=== PATIENT | female | born 1955 | race African-American/Black ===

== ENCOUNTER 2017-09-03 07:41 | Inpatient (IN) | payer OTHER ==
[~2017-09-03] VITALS: Ht 157.4 cm; Wt 139.5 kg
[2017-09-03] VITALS (11 sets, daily range): BP systolic 118–209; BP diastolic 46–109
--- NOTE | ~2017-09-03 | PR ---
[place], [place] PROGRESS NOTE NAME: [facility]: [id number] UNIT #: [id number] ROOM: 425 DOCTOR: WENDI MITCHELL MD BIRTHDATE: [birth year] DOS: SUBJECTIVE: Mariia Brown who has been admitted to hospital with hypertensive encephalopathy. She is progressively getting better. She is conscious, alert and oriented. No headache, no chest pain, no difficulty in breathing, no dizziness. Her basic metabolic panel today is normal. CBC is fairly normal. OBJECTIVE: VITAL SIGNS: Her blood pressure today is 132/70, pulse 78, respirations 18, temperature 98.1. CHEST: Clear. HEART: Regular. ABDOMEN: Soft. NEUROLOGIC: No neurological deficit observed. The patient is gradually improving. I will encourage her to ambulate a little more and see how she is doing. WENDI MITCHELL MD CM:PNTRANS 1113 [id number] WENDI MITCHELL MD 09/07/17 7220 interface
--- NOTE | ~2017-09-03 | PR ---
[place], [place] PROGRESS NOTE NAME[id number] UNIT #: [id number] ROOM: 425 DOCTOR: ERLIN MEDEIROS,ROBERT Frye BIRTHDATE: [birth year] DOS: 09/06/2017 SUBJECTIVE: The patient was seen and examined. She was transferred out of the ICU. She was lying in bed on room air. She denies shortness of breath, fevers, chills or night sweats. Her blood pressures appeared to be well controlled and I did not see any documented low readings. PHYSICAL EXAMINATION: VITAL SIGNS: Temperature 97.8, pulse 73, respiratory rate 18, systolic blood pressures today have been ranging in the 120s to 140s. GENERAL: She is awake and alert, in no acute distress. HEENT: Shows no JVD. LUNGS: Clear. HEART: Normal S1, S2. ABDOMEN: Soft, nontender. EXTREMITIES: Showed no edema. SKIN: Showed no rash. LABORATORY DATA: Hemoglobin 13.0, white count is 7.8, platelets 248. BUN 19, creatinine 0.8, sodium 141, potassium 4.2, CO2 of 29. ASSESSMENT AND PLAN: Hypertension. The patient recently had hypertensive urgency and subsequently with aggressive therapy had a drop acutely in her blood pressure. She now appears to be with acceptable blood pressure readings. She is to continue her current medication with the decreased dose of lisinopril. There is a question of compliance if she had a high readings with reinstitution on meds versus severe drop. From a renal standpoint, she is acceptable for discharge. No other changes were recommended at this time. Nothing further to add, at this point we will sign off. ROBERT KERN MD CM:PNTRANS 1544 ROBERT KERN MD 09/06/17 2316 interface
--- NOTE | ~2017-09-03 | EKG ---
[place], [place] ELECTROCARDIOGRAM REPORT NAME: RENNY BROWN UNIT #: [id number] ROOM: [facility] DOCTOR: AYLA TA MD BIRTHDATE: [birth year] DOS: 09/03/2017 TIME: 08:34:55. RATE AND RHYTHM: Normal sinus rhythm at 60 beats per minute. WY interval 163 milliseconds, QRS duration 88 milliseconds, corrected QT interval is 385 milliseconds, QRS axis is -32. IMPRESSION: Normal sinus rhythm, probable left ventricular hypertrophy. This is abnormal EKG. AYLA TA MD CM:EKGRPT:ELECTROCARDIOGRAM REPORT [id number] AYLA TA MD
--- NOTE | ~2017-09-03 | PR ---
[place], [place] PROGRESS NOTE [id number] UNIT #: [id number] ROOM: 425 DOCTOR: WENDI MITCHELL MD BIRTHDATE: [birth year] DOS: SUBJECTIVE: The patient has been admitted to the hospital with hypertensive encephalopathy with confused mental status and she is feeling much better now, but having some headache, and she is also having history of vertigo, blurred vision, hyperchloremia, hematuria, bradycardia, morbid obesity, essential hypertension. She is not allergic, and lymphopenia. The patient is lying comfortably in the bed, but still feeling some dizziness. Her CBC today shows essentially normal values. Basic metabolic profile was also normal. OBJECTIVE: VITAL SIGNS: Her blood pressure today is 144/86, pulse 77, respirations 20, temperature 98.2. CHEST: Clear. HEART: Regular. ABDOMEN: Soft. I have readjusted her medications to start giving her Norvasc at nighttime instead of in the morning. The patient thinks she does not feel good with it in the morning. WENDI MITCHELL MD CM:PNTRANS 57 WENDI MITCHELL MD 09/06/172058 interface
[~2017-09-03 07:41] MED LIST: ADIPEX-P37.5 MG PO; ALLEGRA180 MG PO; AMLODIPINE5 MG PO; AMOXICILLIN500 M2 PO; AMOXICILLIN500 MG PO; AMOXIL500 MG PO; ANTIVERT/2525 MG PO; ANUSOL-HC25 MG RC; ASPIRIN81 M1 PO; AUGMENTIN 875875 MG PO; CETIRIZINE10 MG PO; CIPRO500 MG PO; CLARITIN10 MG PO; COREG25 MG PO; DIFLUCAN150 MG PO; DOXYCYCLINE MO100 MG PO; FLEXERIL5 MG PO; FLONASE 0.05% 121 EA NAS; HYDROCHLOROTHIA25 MG PO; HYDROCODONE BIT1 T11 PO; LEVAQUIN500 M2 PO; LISINOPRIL40 MG PO; Lopressor25 MG PO; MOTRIN800 MG PO; NAPROXEN500 M1 PO; NIFEDIPINE30 MG PO; PARAFON FORTE500 MG PO; PHENERGAN W/DM120 ML PO; PREDNICOT10 MG PO; PREDNISONE20 M1 PO; PRINIVIL20 MG PO; PROMETHAZINE25 MG RC; ROBITUSSIN DM 105 ML PO; TOBREX OPHTH S2.5 ML OPH; TRAMADOL HCL50 MG PO; ULTRAM50 MG PO; VIBRAMYCIN100 MG PO; VICODIN 500 MG-1 TAB PO; VITAMIN D32000 IU PO; VITAMIN D50000 I1 PO; ZITHROMAX Z PA250 MG PO
[2017-09-03 08:19] LABS: BASO % 0.5 % (0.0-1.0); EOS # 0.2 10*3/uL (0.0-0.4); EOS % 2.1 % (1.0-4.0); HEMATOCRIT 39.8 % (37.0-47.0); HEMOGLOBIN 12.8 g/dl (12.0-16.0); LYMPH # 1.3 10*3/uL (1.3-4.4); LYMPH % 17.1 % (27.0-41.0); MEAN CELL VOLUME 88.6 fl (81.0-99.0); MEAN CORPUSCULAR HGB 28.5 pg (27.0-31.0); MEAN CORPUSCULAR HGB CONC 32.2 g/dl (33.0-37.0); MEAN PLATELET VOLUME 9.9 fl (9.6-12.3); MONO # 0.5 10*3/uL (0.1-1.0); NEUT # 5.7 10*3/uL (2.3-7.9); PLATELET COUNT AUTOMATED 230 10*3/uL (130-400); RED BLOOD COUNT 4.49 10*6/uL (4.10-5.10); RED CELL DISTRI WIDTH 14.8 % (0-14.5); WHITE BLOOD COUNT 7.7 10*3/uL (4.8-10.8)
[2017-09-03 08:27] LABS: ACT PARTIAL THROMBO TIME 25.7 SECONDS (20.8-31.5); INTERNATIONAL NORM RATIO 0.9 (2.0-3.5)
[2017-09-03 08:29] LABS: BILIRUBIN NEGATIVE (NEGATIVE); BLOOD 1+ (NEGATIVE); CLARITY CLEAR (CLEAR); COLOR YELLOW (YELLOW); GLUCOSE NEGATIVE (NEGATIVE); KETONE NEGATIVE (NEGATIVE); LEUKO ESTERASE NEGATIVE (NEGATIVE); NITRITE NEGATIVE (NEGATIVE); PH 5.5 (5.0-9.0); SPECIFIC GRAVITY 1.015 (1.005-1.030); UROBILINOGEN 0.2 E.U./dl (0.2-1.0)
[2017-09-03 08:40] LABS: ALBUMIN 3.1 gm/dl (3.1-4.5); ALKALINE PHOSPHATASE 81 U/L (45-117); BUN 18 mg/dl (7-24); CHLORIDE 110 mmol/L (98-107); CREATININE 0.72 mg/dL (0.55-1.02); POTASSIUM 4.3 mmol/L (3.5-5.1); SGOT/AST 18 IU/L (3-35); SGPT/ALT 23 U/L (12-78); SODIUM 142 mmol/L (136-145); TOTAL PROTEIN 7.1 gm/dL (6.4-8.2)
[2017-09-03 08:42] LABS: TROPONIN I < 0.015 ng/ml (<0.045)
[2017-09-03 08:45] LABS: BACTERIA 1+
--- NOTE | 2017-09-03 10:03 | NUR ---
RECEIVED REPORT ON PT FROM NURSE IN ER, REPORTS PT'S BP 209/109. ASKED IF THEY WERE GOING TO GIVE THE PT ANYTHING, NURSE STATES DR WAS IN ROOM AT THAT TIME WHEN BP WAS REPORTED AND NO ORDERS AT THIS TIME. STATES THEY JUST RECHECKED BP AND IT IS 160/69, BUT STATES BP CUFF IS NOT PROPER FITTING.
--- NOTE | 2017-09-03 10:10 | NUR ---
A 62, admitted to 5E, under the services of AYLA Persaud MD with a diagnosis of HTN EMERGENCY. Chief complaint is HEADACHE, DIZZINESS. Patient arrived via ambulatory from ER. Monitor applied. Initial assessment completed. Vital signs taken and recorded. AYLA PERSAUD MD notified of admission to the unit. Orders received. See assessment for past medical history, medications and allergies. Patient and/or family oriented to unit. [facility] visitation policy reviewed. Clothing/patient valuable form completed. LARRY SALMON
[2017-09-03] MEDS ORDERED: NORVASC10 MG PO (10:20)
[2017-09-03] MEDS ORDERED: LASIX40 MG PO (10:21)
[2017-09-03] MEDS ORDERED: K-TAB20 MEQ PO ×2 (10:22→10:25)
--- NOTE | 2017-09-03 10:25 | NUR ---
HOME MED REQ UPDATED PER [facility]. MED LIST FAXED AND ON CHART.
--- NOTE | 2017-09-03 10:52 | NUR ---
DR LOWERY UPDATED ON PT'S STATUS, BP REMAINS 178/92. PT DID NOT RECEIVE ANYTHING IN ER. UPDATED THAT PT DID TAKE HER COREG AND NORVASC AT HOME BEFORE COMING IN.
--- NOTE | 2017-09-03 11:53 | NUR ---
BP RECHECKED MANUALLY 142/72. DR LOWERY NOTIFIED.
--- NOTE | 2017-09-03 12:11 | NUR ---
SPOKE WITH DR LOWERY REGARDING PT'S ADMIT TO SERVIC ORDER, STATES THAT PT SHOULD REMAIN ON THE MONITOR AND HE WILL CHANGE THE ORDER FROM UNMONITORED TO MONITORED.
--- NOTE | 2017-09-03 14:30 | NUR ---
DR LOWERY NOTIFIED OF PT'S BP OF 136/46 AFTER RECEIVING IV HYDRALAZINE, LISNIOPRIL IS PROFILED TO BE GIVEN NOW. STATES TO HOLD LISINOPRIL FOR NOW AND TO CALL WITH BP AT 1600. STATES OK TO START ANTIVERT NOW AND KEEP 2200 DOSE WELL.
--- NOTE | 2017-09-03 15:23 | NUR ---
PT DOWN FOR CAROTID ULTRASOUND AT THIS TIME.
--- NOTE | 2017-09-03 16:41 | NUR ---
SPOKE WITH DR LOWERY REGARDING PT'S BP PER MD REQUEST, PT'S BP 158/66, STATES TO GIVEN SCHEDULED 1700 DOSE OF COREG AND GIVE EARLIER SCHEDULED LISINOPRIL AT THIS TIME, AND TO RECHECK BP IN AN HOUR AND CALL WITH RESULTS. PT MEDICATED WITH TYLENOL AT THIS TIME FOR COMPLAINTS OF HEADACHE.
--- NOTE | 2017-09-03 19:50 | NUR ---
LAB RESULTS AND ORDERS REVIEWED
[2017-09-04] VITALS (8 sets, daily range): BP systolic 104–160; BP diastolic 62–89
[2017-09-04 07:16] LABS: BASO % 0.6 % (0.0-1.0); EOS # 0.1 10*3/uL (0.0-0.4); EOS % 1.8 % (1.0-4.0); HEMATOCRIT 38.7 % (37.0-47.0); HEMOGLOBIN 12.7 g/dl (12.0-16.0); LYMPH # 1.3 10*3/uL (1.3-4.4); LYMPH % 18.6 % (27.0-41.0); MEAN CELL VOLUME 88.6 fl (81.0-99.0); MEAN CORPUSCULAR HGB 29.1 pg (27.0-31.0); MEAN CORPUSCULAR HGB CONC 32.8 g/dl (33.0-37.0); MEAN PLATELET VOLUME 9.8 fl (9.6-12.3); MONO # 0.5 10*3/uL (0.1-1.0); MONO % 6.8 % (3.0-9.0); NEUT # 4.9 10*3/uL (2.3-7.9); NEUT % 71.9 % (47.0-73.0); PLATELET COUNT AUTOMATED 234 10*3/uL (130-400); RED BLOOD COUNT 4.37 10*6/uL (4.10-5.10); RED CELL DISTRI WIDTH 14.8 % (0-14.5); WHITE BLOOD COUNT 6.8 10*3/uL (4.8-10.8)
--- NOTE | 2017-09-04 07:30 | NUR ---
PT SLEEPING EASILY AWAKEN A&OX3 VS STABLE BUT BLOOD PRESSURE [place]. EQUAL ASSISTANT PRINCIPAL. HEART SOUNDS NORMAL. LUNG SOUNDS CLEAR BUT DIMISHED. SKIN TURGOR GOOD WARM DRY TO TOUCH. SKIN INTACT. NO EDMA PRESENT. ABD SOFT NON-DISTENED NON TENDER. BSX4. I ASST PT, SHE ABMULATED WELL FROM THE BED TO THE BATHROOM THEN TO THE CHAIR. PT DENIES ANY DIZZINESS, CHEST PAIN. NO C/O OF PAIN AT THIS TIME CONTUINE TO ASSESS LARRY CALL SPN
[2017-09-04 07:43] LABS: ACT PARTIAL THROMBO TIME 25.6 SECONDS (20.8-31.5)
[2017-09-04 07:47] LABS: BUN 14 mg/dl (7-24); CHLORIDE 108 mmol/L (98-107); CHOLESTEROL 123 mg/dL (<200); CREATININE 0.71 mg/dL (0.55-1.02); FREE T4 1.21 ng/dl (0.76-1.46); HDL CHOLESTEROL 39 mg/dl (40-60); LDL CHOLESTEROL 63 mg/dL (9-159); POTASSIUM 4.1 mmol/L (3.5-5.1); SODIUM 141 mmol/L (136-145); TRIGLYCERIDES 104 mg/dl (<150); VLDL CHOLESTEROL 21 mg/dL (6-40)
[2017-09-04 07:54] LABS: THYROID STIM HORMONE (HS) 0.904 uIU/ml (0.358-4.75)
--- NOTE | 2017-09-04 08:00 | NUR ---
Floorhand in to talk to patient. Patient states lives at HOMEHER with HER SON. There are 16 steps in the home. Physician: DR TA Pharmacy: [facility] Home health services: NONE Patient's level of ADLs: INDEPENDENT Patient has working utilities: YES DME: NONE Follow-up physician's appointment after d/c: PREFERS TO MAKE HER OWN APPT Does patient want to access PORTAL?: Discharge plan HOME. CYRIL YANCEY
--- NOTE | 2017-09-04 08:00 | NUR ---
PT BEING CARED FOR BY [facility] STUDENT NURSE, WILL CONTINUE TO MONITOR.
--- NOTE | 2017-09-04 08:30 | NUR ---
PT A&OX3 VERY PLEASANT DUE TO HER HIGH BP PER VERONICA TO GIVE APRESOLINE 5MG IV GAVE 0,25 ML AND NS FLUSH. RAFA IV PUSHED MEDS. I WILL RECHECK BLOOD PRESSUSE LARRY CALL SPN
[2017-09-04 09:18] LABS: VITAMIN D, 25-HYDROXY 34.4 ng/mL (30-100)
--- NOTE | 2017-09-04 09:30 | NUR ---
PT A&O X3 LAYING IN BED, VERY PLEASANT. RECHECKD BLOOD PRESSUER IT WAS 123/53 HAD TO USE AUTOMATIC PRESSURE CUFF DUE TO MANUAL PRESSURE CUFFS NOT WORKING. PT HAD NO C/O AT THIS TIME, WILL CONTUINE TO ASSESS. LARRY CALL
--- NOTE | 2017-09-04 10:00 | NUR ---
PT A&0 X3 VERY PLEASANT WAS GIVING HER MEDS AND SHE REFUSED TO TAKE THE LOVENOX SHOT. SHE ASKED " WHAT KIND OF SHOT IS THAT, I DONT TAKE ANY MEDS IN SHOTS" SHE WAS TOLD IT IS A BLOOD THINNER, THAT EVERYONE IN THE HOSPITAL GETS IT. PT STATED "IM NOT TAKING THAT, I DON'T NEED IT, I BLEED AND BRUISE TO EASILY IT IS" PT ALSO IS REFUSING TO WEAR [place] HOSE STATES' I DON'T NEED THEM I GET UP AND MOVE AROUND ENOUGH" NO C/O PAIN AT THIS TIME CONTINUE TO ASSESS LARRY CALL SPN
--- NOTE | 2017-09-04 10:17 | NUR ---
SPOKE WITH STAFF AT [facility] REAGRDING CONSULT. STAFF REQUESTS & WAS FAXED ORDER FOR [facility], FACE SHEET & H&P.
--- NOTE | 2017-09-04 13:07 | NUR ---
DR TA IN TO SEE PT.
--- NOTE | 2017-09-04 16:00 | NUR ---
LYING COMFORTABLY IN BED, PT DENIES C/O CHEST PAIN OR S.O.B. ADMITS TO "FEELING LIKE THE ROOM MOVES IF I MOVE OR TRY TO STAND UP" DENIES BLURRED VISION OR NAUSEA. CALL LIGHT SYSTEM REINFORCED FOR ASSISTANCE.SEE SHIFT ASSESSMENT.
--- NOTE | 2017-09-04 18:32 | NUR ---
CALLED TO PTS ROOM BY FAMILY, PT C/O "FEELING DIZZY & FEELS LIKE IM GONNA PASS OUT" PT INSISTED ON GOING TO [facility], ASSISTED WITHOUT INCIDENT. PT DIAPHORETIC, STATES I THING IM GONNA PASS OUT, RAPID RESPONSE CALLED. BLOOD SUGAR 92, DR FARRIS AT BEDSIDE. ORDERS BEING CARRIED OUT.
[2017-09-04 18:48] LABS: BASO # 0.1 10*3/uL (0.0-0.1); BASO % 0.6 % (0.0-1.0); EOS # 0.1 10*3/uL (0.0-0.4); EOS % 1.1 % (1.0-4.0); HEMATOCRIT 41.6 % (37.0-47.0); HEMOGLOBIN 13.4 g/dl (12.0-16.0); LYMPH # 2.1 10*3/uL (1.3-4.4); LYMPH % 19.9 % (27.0-41.0); MEAN CELL VOLUME 88.1 fl (81.0-99.0); MEAN CORPUSCULAR HGB 28.4 pg (27.0-31.0); MEAN CORPUSCULAR HGB CONC 32.2 g/dl (33.0-37.0); MONO # 0.6 10*3/uL (0.1-1.0); MONO % 6.1 % (3.0-9.0); NEUT # 7.5 10*3/uL (2.3-7.9); NEUT % 71.9 % (47.0-73.0); PLATELET COUNT AUTOMATED 276 10*3/uL (130-400); RED BLOOD COUNT 4.72 10*6/uL (4.10-5.10); RED CELL DISTRI WIDTH 14.9 % (0-14.5); WHITE BLOOD COUNT 10.5 10*3/uL (4.8-10.8)
[2017-09-04 19:04] LABS: BUN 23 mg/dl (7-24); CHLORIDE 106 mmol/L (98-107); CREATININE 1.14 mg/dL (0.55-1.02); POTASSIUM 4.3 mmol/L (3.5-5.1); SODIUM 140 mmol/L (136-145)
[2017-09-04 19:06] LABS: TROPONIN I < 0.015 ng/ml (<0.045)
--- NOTE | 2017-09-04 19:20 | NUR ---
TRANSFERRED TO ICU WITHOUT INCIDENT, REPORT TO MAX GUEVARA RN. FAMILY AT BEDSIDE.
--- NOTE | 2017-09-04 20:11 | NUR ---
DR GERRY HILL FOR CONSULT. PT IS RESTING IN BED WITH FAMILY AT SIDE. VITALS STABLE. BP 123/58.
--- NOTE | 2017-09-04 21:44 | NUR ---
DR. ESQUEDA ANSWERED BEEP. NOTIFIED OF CONSULT. WILL SEE PT IN THE AM.NO NEW ORDERS RECEIVED.
--- NOTE | 2017-09-04 23:15 | NUR ---
PATIENT STATES EARLIER TYLENOL WAS INEFFECTIVE FOR HER HEADACHE.
[2017-09-05] VITALS: BP 124/54
[2017-09-05 04:00] VITALS: BP 126/44
[2017-09-05 05:55] LABS: ALKALINE PHOSPHATASE 68 U/L (45-117); BUN 19 mg/dl (7-24); CHLORIDE 108 mmol/L (98-107); CREATININE 0.79 mg/dL (0.55-1.02); PHOSPHOROUS 3.1 mg/dL (2.5-4.9); POTASSIUM 4.1 mmol/L (3.5-5.1); SGOT/AST 16 IU/L (3-35); SGPT/ALT 20 U/L (12-78); SODIUM 141 mmol/L (136-145)
[2017-09-05 06:09] LABS: BASO # 0.1 10*3/uL (0.0-0.1); BASO % 0.6 % (0.0-1.0); EOS # 0.1 10*3/uL (0.0-0.4); EOS % 1.2 % (1.0-4.0); HEMATOCRIT 39.9 % (37.0-47.0); HEMOGLOBIN 13.1 g/dl (12.0-16.0); LYMPH # 1.7 10*3/uL (1.3-4.4); LYMPH % 20.7 % (27.0-41.0); MEAN CELL VOLUME 88.9 fl (81.0-99.0); MEAN CORPUSCULAR HGB 29.2 pg (27.0-31.0); MEAN CORPUSCULAR HGB CONC 32.8 g/dl (33.0-37.0); MEAN PLATELET VOLUME 10.1 fl (9.6-12.3); MONO # 0.6 10*3/uL (0.1-1.0); MONO % 7.7 % (3.0-9.0); NEUT # 5.6 10*3/uL (2.3-7.9); NEUT % 69.4 % (47.0-73.0); PLATELET COUNT AUTOMATED 245 10*3/uL (130-400); RED BLOOD COUNT 4.49 10*6/uL (4.10-5.10); RED CELL DISTRI WIDTH 14.9 % (0-14.5); WHITE BLOOD COUNT 8.1 10*3/uL (4.8-10.8)
[2017-09-05 08:00] VITALS: BP 133/69
--- NOTE | 2017-09-05 10:43 | NUR ---
PT TAKEN TO RADIOLOGY DEPT FOR RENAL ULTRASOUND.
[2017-09-05 12:00] VITALS: BP 149/78
--- NOTE | 2017-09-05 13:57 | NUR ---
DR ESQUEDA IN TO SEE PT.
[2017-09-05 16:00] VITALS: BP 137/67
--- NOTE | 2017-09-05 18:11 | NUR ---
PT TRANSFERED TO ROOM 425 VIA BED AT THIS TIME.
[2017-09-05 20:00] VITALS: BP 130/64
--- NOTE | 2017-09-05 22:00 | NUR ---
PATIENT RESTING QUIETLY IN BED. RESPIRATIONS EASY/REG. SHE C/O FEELING DIZZY AND HAVING A HEADACHE WHICH SHE HAD BEEN MEDICATED FOR. SHE STATES SHE FEELS DIZZY AND HAS BEEN FEELING THIS WAY SINCE BEFORE SHE CAME IN. SHE WAS MEDICATED WITH SCHEDULED ANTIVERT WELL. WILL MONITOR.
--- NOTE | 2017-09-05 22:08 | NUR ---
MEDICATED WITH PRN TYLENOL ORDERD FOR C/O HEADACHE
--- NOTE | 2017-09-05 23:08 | NUR ---
PATIENT STATES EARLIER TYLENOL WAS INEFFECTIVE FOR HER HEADACHE.
--- NOTE | 2017-09-05 23:15 | NUR ---
DR CASTILLO AND DR CAN MADE AWARE OF PATIENTS DIZZINESS AND CONSTANT HEADACHE. NO NEW ORDERS AT THIS TIME.
[2017-09-06] VITALS: BP 137/59
--- NOTE | 2017-09-06 00:32 | NUR ---
PATIENT WAS COMPLAINING OF HER IV BOTHERING HER AND CAUSING PAIN. I REMOVED THE OLD ONE AND STARTED A NEW 22 IN HER RIGHT HAND. AREA WAS PREPPED WITH CHLORAPREP, HAS GOOD BLOOD RETURN AND FLUSHES EASILY WITHOUT CAUSING PAIN TO PATIENT. IV SECURED AND TRANSPARENT DRESSING APPLIED. PATIENT TOLERATED WELL.
--- NOTE | 2017-09-06 04:16 | NUR ---
PATIENT RESTING WITH HOB ELEVATED. C/O A HEADACHE WHICH SHE RATES A 7. MEDICATED WITH PRN TYLENOL ORDERED.
[2017-09-06 06:30] VITALS: BP 128/57
[2017-09-06 07:13] LABS: BASO # 0.1 10*3/uL (0.0-0.1); BASO % 0.6 % (0.0-1.0); EOS # 0.1 10*3/uL (0.0-0.4); EOS % 1.7 % (1.0-4.0); HEMATOCRIT 40.9 % (37.0-47.0); LYMPH # 1.6 10*3/uL (1.3-4.4); LYMPH % 19.8 % (27.0-41.0); MEAN CELL VOLUME 89.1 fl (81.0-99.0); MEAN CORPUSCULAR HGB 28.3 pg (27.0-31.0); MEAN CORPUSCULAR HGB CONC 31.8 g/dl (33.0-37.0); MEAN PLATELET VOLUME 9.9 fl (9.6-12.3); MONO # 0.5 10*3/uL (0.1-1.0); MONO % 6.8 % (3.0-9.0); NEUT # 5.5 10*3/uL (2.3-7.9); NEUT % 70.6 % (47.0-73.0); PLATELET COUNT AUTOMATED 248 10*3/uL (130-400); RED BLOOD COUNT 4.59 10*6/uL (4.10-5.10); RED CELL DISTRI WIDTH 14.9 % (0-14.5); WHITE BLOOD COUNT 7.8 10*3/uL (4.8-10.8)
[2017-09-06 07:39] LABS: BUN 19 mg/dl (7-24); CHLORIDE 106 mmol/L (98-107); CREATININE 0.81 mg/dL (0.55-1.02); POTASSIUM 4.2 mmol/L (3.5-5.1); SODIUM 141 mmol/L (136-145)
[2017-09-06 08:00] VITALS: BP 144/86
--- NOTE | 2017-09-06 11:17 | NUR ---
PT COMPLAINS OF DIZZINESS, VITALS TAKEN, BLOOD PRESSURE WNL. COMPLAINS OF HEADACHE, TYLENOL GIVEN. SEE MAR WILL MONITOR
[2017-09-06 12:00] VITALS: BP 149/77
[2017-09-06 16:00] VITALS: BP 130/76
--- NOTE | 2017-09-06 19:45 | NUR ---
PT AWAKE IN BED WATCHING TV. C/O DIZZINESS AT TIMES BUT LESS FREQUENT. NO OTHER C/O VOICED. ENCOURAGED TO CALL FOR ASSISTANCE WHEN RISING/AMBULATING. PT ACKNOWLEDGES. CALL LIGHT IN REACH.
[2017-09-06 20:00] VITALS: BP 122/62
[2017-09-07] VITALS: BP 105/50
--- NOTE | 2017-09-07 03:15 | NUR ---
24 HR chart check completed.
[2017-09-07 08:00] VITALS: BP 132/76
[2017-09-07 12:00] VITALS: BP 135/58
[2017-09-07 16:00] VITALS: BP 132/61
--- NOTE | 2017-09-07 18:26 | NUR ---
TYLENOL 650MG PO GIVEN PER PATIENT REQUEST FOR A HEADACHE RATING A 8/10.
[2017-09-07 20:00] VITALS: BP 116/47
[2017-09-08] VITALS: BP 123/66
[2017-09-08 08:00] VITALS: BP 113/77
[2017-09-08 12:00] VITALS: BP 126/60
[2017-09-08 16:00] VITALS: BP 125/63
[2017-09-08] MEDS ORDERED: ALDACTONE25 MG PO (16:49)
--- NOTE | 2017-09-08 19:05 | NUR ---
PT DISCHARGE OFF OF FLOOR, AMBULATORY, REFUSED WHEELCHAIR. PT STABLE.
== END 2017-09-08 19:05 | disposition home or self-care (01) | DRG 305 ==
LOC: ED 07:41 → 5E 09:27 → EDHOLD 09:27 → 5E 09:41 → ICCU 09-04 18:47 → 4E 09-05 17:40
PROVIDERS: Emergency Medicine; Internal Medicine; ADMIT Internal Medicine
DX: I16.1 Hypertensive emergency (principal); E66.01 Morbid (severe) obesity due to excess calories; E87.8 Other disorders of electrolyte and fluid balance, not elsewhere classified; K76.0 Fatty (change of) liver, not elsewhere classified; N13.30 Unspecified hydronephrosis; R00.1 Bradycardia, unspecified; R31.9 Hematuria, unspecified; M17.9 Osteoarthritis of knee, unspecified; I10 Essential (primary) hypertension; R42 Dizziness and giddiness; J30.2 Other seasonal allergic rhinitis; B34.9 Viral infection, unspecified; H53.8 Other visual disturbances; Z78.9 Other specified health status; Z88.1 Allergy status to other antibiotic agents; Z88.8 Allergy status to other drugs, medicaments and biological substances; Z79.82 Long term (current) use of aspirin; Z79.899 Other long term (current) drug therapy; Z68.43 Body mass index [BMI] 50.0-59.9, adult; Z87.440 Personal history of urinary (tract) infections; Z90.49 Acquired absence of other specified parts of digestive tract; Z87.01 Personal history of pneumonia (recurrent); Z84.89 Family history of other specified conditions; Z83.3 Family history of diabetes mellitus; Z82.49 Family history of ischemic heart disease and other diseases of the circulatory system; Z82.3 Family history of stroke

== ENCOUNTER 2018-07-26 16:55 | Emergency (ER) | payer MEDICARE ==
[~2018-07-26] VITALS: Ht 157.4 cm; Wt 119.3 kg
[~2018-07-26 16:55] MED LIST changes: +ALDACTONE25 MG PO; +K-TAB20 MEQ PO; +LASIX40 MG PO; +NORVASC10 MG PO; +ZESTORETIC 10-1 EACH PO
[2018-07-26 16:56] VITALS: BP 174/91
== END 2018-07-26 19:18 | disposition home or self-care (01) ==
LOC: ED 16:55
DX: S93.601A Unspecified sprain of right foot, initial encounter (principal); Z88.1 Allergy status to other antibiotic agents; Z88.6 Allergy status to analgesic agent; Z79.899 Other long term (current) drug therapy; Z90.49 Acquired absence of other specified parts of digestive tract; X58.XXXA Exposure to other specified factors, initial encounter; Y93.01 Activity, walking, marching and hiking; Y92.000 Kitchen of unspecified non-institutional (private) residence as the place of occurrence of the external cause; Y99.8 Other external cause status

== ENCOUNTER 2018-08-19 11:54 | Emergency (ER) | payer MEDICARE ==
[~2018-08-19] VITALS: Ht 157.4 cm; Wt 86.2 kg
[2018-08-19 11:54] VITALS: BP 158/84
== END 2018-08-19 14:26 | disposition home or self-care (01) ==
LOC: ED 11:54
DX: S93.401A Sprain of unspecified ligament of right ankle, initial encounter (principal); I11.0 Hypertensive heart disease with heart failure; I50.32 Chronic diastolic (congestive) heart failure; E66.01 Morbid (severe) obesity due to excess calories; Z90.49 Acquired absence of other specified parts of digestive tract; Z68.43 Body mass index [BMI] 50.0-59.9, adult; Z88.1 Allergy status to other antibiotic agents; Z88.8 Allergy status to other drugs, medicaments and biological substances; Z79.899 Other long term (current) drug therapy

== ENCOUNTER → 2018-10-14 | Outpatient (CLI) | payer MEDICARE ==
[~2018-10-14] MED LIST changes: +NAPROXEN500 MG PO; +PROTONIX40 MG PO; +VITAMIN D22000 UNIT PO; +ZESTORETIC 20-1 EACH PO
== END | disposition home or self-care (01) ==
LOC: MRI 13:15
DX: M65.871 Other synovitis and tenosynovitis, right ankle and foot (principal); M19.071 Primary osteoarthritis, right ankle and foot; M67.471 Ganglion, right ankle and foot

== ENCOUNTER 2018-11-13 23:22 | Inpatient (IN) | payer MEDICARE ==
[~2018-11-13] VITALS: Ht 157.4 cm; Wt 129.3 kg
--- NOTE | ~2018-11-13 | CON ---
[place], [place] REPORT OF CONSULTATION NAME[id number] UNIT #: [id number] ROOM: 528 DOCTOR: ROBERTO GREER MD BIRTHDATE: [birth year] DOS: 11/14/2018 GASTROENDOSCOPIC REPORT HISTORY OF PRESENT ILLNESS: This is a 63-year-old lady, who has presented with chief complaint of dehydration with nausea, abdominal pain, epigastric distress, and vomiting symptomatology. The patient has lactic acid of 0.9. CBC differential white blood cell was 11, H and H of 14 and 44, differential was within normal limits. INR was 0.9. Comprehensive metabolic panel, GFR is greater than 60. Electrolytes balanced. Lipase of 500. C-reactive protein is 2.4. Liver function tests otherwise unremarkable. Chest x-ray, no acute findings. CT scan of the abdomen and pelvis was organized. No acute inflammatory process, severe diffuse hepatic steatosis with hepatomegaly, no definitive evidence of pneumoperitoneum, mediastinum, tubular appearing small locules of gas along the periphery of the distal esophagus, and EG junction similar to a CT scan of the 2018, concerned about the etiology could present containing ulceration with gas in this area. Hemoglobin and hematocrit did not drop. Hemoglobin A1c is 5.8. Vitamin B12 is 48. Comprehensive metabolic panel, electrolytes balanced; phosphorus, magnesium, and liver function test normal. INR is 0.9. PAST MEDICAL HISTORY: Aortic valve deformity, history of degenerative joint disease, diverticulosis, congestive heart failure, obesity, systemic hypertension, and extreme steatosis of the liver. PAST SURGICAL HISTORY: Appendectomy, mandibular surgery, and eye surgery, details unknown. MEDICATIONS: Has been reviewed. ALLERGIES: THE PATIENT IS ALLERGIC TO TETRACYCLINE AND IBUPROFEN. SOCIAL HISTORY: Nonsmoker, nonalcohol consumer. FAMILY HISTORY: Noncontributory. REVIEW OF SYSTEMS: HEENT: Denies double vision, blurred vision. RESPIRATORY: Denies acute shortness of breath. CARDIOVASCULAR: Denies acute chest pain. DIGESTIVE SYSTEM: Nausea, epigastric distress, abdominal pain, and she mentions dehydration. PHYSICAL EXAMINATION: GENERAL: Comfortable. Nontoxic patient. Obese. VITAL SIGNS: Stable. HEENT: Head is normocephalic, nontraumatic. Eyes: Pupils are round and reactive. Mouth and buccal mucosa benign. NECK: Supple. No thyromegaly. No cervical lymphadenopathy. CHEST: Symmetric anatomy, equal expansion. No wheeze. No rhonchi. [place], [place] REPORT OF CONSULTATION NAME: RENNY BROWN UNIT #: [id number] ROOM: 528 DOCTOR: ROBERTO GREER MD BIRTHDATE: [birth year] HEART: Normal sinus rhythm. No gallop. No murmur. ABDOMEN: Soft. No hepato-organomegaly. Bowel sounds present. Obesity. Intra-abdominal organs cannot be in detail auscultated nor palpated. EXTREMITIES: No cyanosis. No pedal edema. NEUROLOGIC: She is alert and oriented to time, place, and person. IMPRESSION: Nausea, epigastric distress, fatty metamorphosis of the liver, and diastolic congestive heart failure history. Other adjunctive diagnoses as outlined in paragraph of past medical and surgical history. PLAN AND DISCUSSION: I am going to proceed with endoscopy of upper tract. I am concerned about portal hypertension, esophageal varicosity presence also. Workup in progress. ROBERTO GREER MD CM:CONSTR:REPORT OF CONSULTATION 1435 11/25/18 1105 interface
--- NOTE | ~2018-11-13 | EKG ---
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
--- NOTE | ~2018-11-13 | O ---
[place], [place] OPERATIVE NOTE [id number] UNIT #: [id number] ROOM: 528 DOCTOR: ROBERTO GREER MD BIRTHDATE: [birth year] DOS: 11/14/2018 GASTROENDOSCOPIC REPORT HISTORY OF PRESENT ILLNESS: The patient is a 63-year-old patient who has presented with chief complaint of epigastric abdominal pain, undergone investigation. Nausea, epigastric distress. PROCEDURE: Today's procedure part of investigation is panendoscopy plus biopsy. PREMEDICATION: Propofol. SCOPE: Olympus forward-viewing gastroscope Q10 video. REPORT: After putting the patient in left lateral position and application of lubricant to the scope, the scope was introduced. Thereafter, under direct visualization, advanced through the length of esophagus without difficulty. Gastric pouch was entered. Bile reflux gastritis was photographed suctioned out and antral biopsy obtained. Duodenal bulb, second and third part within normal limit. The patient extubated, tolerated the procedure well. IMPRESSION: Bile reflux gastritis, status post biopsy. PLAN AND DISCUSSION: The patient needs to be on Protonix 40 mg 1 day. As far as, other adjunctive diagnoses severe steatosis of the liver is concerned. I did not see any evidence of esophageal varicosity, no evidence of portal hypertension as a result and antireflux has to be measured, dietary management to reduce the caloric intake has to be in consideration, elevation of the head of the bed must be considered an 8 inch all time and clinical reassessment. ROBERTO GREER MD CM:OPRECORD:OPERATIVE NOTE 1531 1545 ROBERTO GREER MD 11/14/18 1545 interface
[~2018-11-13 23:22] MED LIST changes: -NAPROXEN500 MG PO; -PROTONIX40 MG PO; -VITAMIN D22000 UNIT PO; -ZESTORETIC 20-1 EACH PO
[2018-11-13 23:23] VITALS: BP 171/92
[2018-11-13 23:57] LABS: BASO % 0.3 % (0.0-1.0); EOS # 0.1 10*3/uL (0.0-0.4); HEMATOCRIT 44.2 % (37.0-47.0); HEMOGLOBIN 14.3 g/dl (12.0-16.0); LYMPH # 0.6 10*3/uL (1.3-4.4); LYMPH % 5.4 % (27.0-41.0); MEAN CELL VOLUME 89.7 fl (81.0-99.0); MEAN CORPUSCULAR HGB CONC 32.4 g/dl (33.0-37.0); MEAN PLATELET VOLUME 9.5 fl (9.6-12.3); MONO # 0.5 10*3/uL (0.1-1.0); MONO % 4.7 % (3.0-9.0); NEUT # 10.2 10*3/uL (2.3-7.9); NEUT % 88.1 % (47.0-73.0); PLATELET COUNT AUTOMATED 256 10*3/uL (130-400); RED BLOOD COUNT 4.93 10*6/uL (4.10-5.10); WHITE BLOOD COUNT 11.6 10*3/uL (4.8-10.8)
[2018-11-14] VITALS (9 sets, daily range): BP systolic 122–153; BP diastolic 50–72
[2018-11-14 00:11] LABS: ACT PARTIAL THROMBO TIME 23.9 SECONDS (20.8-31.5); INTERNATIONAL NORM RATIO 0.9 (2.0-3.5)
[2018-11-14 00:14] LABS: ALBUMIN 3.2 gm/dl (3.1-4.5); ALKALINE PHOSPHATASE 81 U/L (45-117); BUN 15 mg/dl (7-24); CHLORIDE 109 mmol/L (98-107); CREATININE 0.82 mg/dL (0.55-1.02); LIPASE 500 U/L (73-393); POTASSIUM 4.3 mmol/L (3.5-5.1); SGOT/AST 27 IU/L (3-35); SGPT/ALT 36 U/L (12-78); SODIUM 140 mmol/L (136-145); TOTAL PROTEIN 7.9 gm/dL (6.4-8.2)
[2018-11-14 00:15] LABS: TROPONIN I < 0.015 ng/ml (<0.045)
--- NOTE | 2018-11-14 05:00 | NUR ---
A 63, admitted to , under the services of AYLA Persaud MD with a diagnosis of GASTROENTERITIS. Chief complaint is EPIGASTRIC PAIN. . Patient arrived via bed from ER. Monitor applied. Initial assessment completed. Vital signs taken and recorded. AYLA PERSAUD MD notified of admission to the unit. Orders received. See assessment for past medical history, medications and allergies. Patient and/or family oriented to unit. [facility] visitation policy reviewed. Clothing/patient valuable form completed. BEBO MERRILL
[2018-11-14] MEDS ORDERED: NAPROXEN500 MG PO (05:27)
--- NOTE | 2018-11-14 05:29 | NUR ---
PATIENTS MED REC UPDATED FROM CLAIM HX. PATIENT STATES NO NEW MEDICATION.
[2018-11-14 06:56] LABS: BASO % 0.1 % (0.0-1.0); EOS # 0.1 10*3/uL (0.0-0.4); EOS % 1.6 % (1.0-4.0); HEMATOCRIT 41.8 % (37.0-47.0); HEMOGLOBIN 12.8 g/dl (12.0-16.0); LYMPH # 0.6 10*3/uL (1.3-4.4); LYMPH % 8.2 % (27.0-41.0); MEAN CELL VOLUME 92.5 fl (81.0-99.0); MEAN CORPUSCULAR HGB 28.3 pg (27.0-31.0); MEAN CORPUSCULAR HGB CONC 30.6 g/dl (33.0-37.0); MEAN PLATELET VOLUME 9.8 fl (9.6-12.3); MONO # 0.3 10*3/uL (0.1-1.0); MONO % 4.4 % (3.0-9.0); NEUT % 85.4 % (47.0-73.0); PLATELET COUNT AUTOMATED 217 10*3/uL (130-400); RED BLOOD COUNT 4.52 10*6/uL (4.10-5.10); RED CELL DISTRI WIDTH 14.9 % (0-14.5)
[2018-11-14 07:25] LABS: ALKALINE PHOSPHATASE 73 U/L (45-117); BUN 12 mg/dl (7-24); CHLORIDE 112 mmol/L (98-107); CHOLESTEROL 106 mg/dL (<200); CREATININE 0.73 mg/dL (0.55-1.02); HDL CHOLESTEROL 37 mg/dl (40-60); LDL CHOLESTEROL 54 mg/dL (9-159); PHOSPHOROUS 2.6 mg/dL (2.5-4.9); POTASSIUM 4.1 mmol/L (3.5-5.1); SGOT/AST 17 IU/L (3-35); SGPT/ALT 29 U/L (12-78); SODIUM 144 mmol/L (136-145); TOTAL PROTEIN 6.5 gm/dL (6.4-8.2); TRIGLYCERIDES 76 mg/dl (<150); VLDL CHOLESTEROL 15 mg/dL (6-40)
[2018-11-14 07:27] LABS: FREE T4 1.08 ng/dl (0.76-1.46)
[2018-11-14 07:28] LABS: ACT PARTIAL THROMBO TIME 25.9 SECONDS (20.8-31.5); INTERNATIONAL NORM RATIO 0.9 (2.0-3.5)
[2018-11-14 07:31] LABS: VITAMIN D, 25-HYDROXY 17.8 ng/mL (30-100)
--- NOTE | 2018-11-14 10:08 | NUR ---
TORADOL GIVEN FOR 10 OUT OF 10 PAIN IN HEAD. WILL CONTINUE TO MONITOR AND REASSESS.
--- NOTE | 2018-11-14 10:45 | NUR ---
TORADOL EFFECTIVE FOR 10 OUT OF 10 PAIN. PT RESTING COMFORTABLY.
[2018-11-14 22:10] LABS: BILIRUBIN NEGATIVE (NEGATIVE); BLOOD NEGATIVE (NEGATIVE); CLARITY SL CLOUDY (CLEAR); COLOR YELLOW (YELLOW); GLUCOSE NEGATIVE (NEGATIVE); KETONE NEGATIVE (NEGATIVE); LEUKO ESTERASE TRACE (NEGATIVE); NITRITE NEGATIVE (NEGATIVE); PH 5.5 (5.0-9.0); SPECIFIC GRAVITY 1.025 (1.005-1.030); UROBILINOGEN 0.2 E.U./dl (0.2-1.0)
[2018-11-14 22:42] LABS: BACTERIA 3+
[2018-11-15] VITALS: BP 141/58
[2018-11-15 08:00] VITALS: BP 138/60
--- NOTE | 2018-11-15 08:24 | NUR ---
PT SITTING UP IN BED. NO DISTRESS NOTED. WILL MONITOR
[2018-11-15 12:00] VITALS: BP 145/71
[2018-11-15 16:00] VITALS: BP 154/69
[2018-11-15 20:00] VITALS: BP 181/76
[2018-11-15 20:24] VITALS: BP 168/72
[2018-11-15] MEDS ORDERED: ZESTORETIC 20-1 EACH PO (20:27)
--- NOTE | 2018-11-15 20:30 | NUR ---
NOTIFIED OF BP 168/72 MANUALLY. INSTRUCTED TO ORDER HOME MEDICATION LISINOPRIL 20/HCTZ 12.5.
--- NOTE | 2018-11-15 20:55 | NUR ---
PO LISINOPRIL AND PO HCTZ ADMINISTERED PER 'S ORDER. PATIENT DENIES HEADACHE, CHEST PAIN, DIZZINESS, SOB, OR ANY OTHER GENERALZIED DISCOMFORT AT THIS TIME. WILL CONTINUE TO MONITOR. CALL LIGHT LEFT IN REACH.
[2018-11-16] VITALS: BP 141/63
[2018-11-16 08:00] VITALS: BP 158/92
--- NOTE | 2018-11-16 09:00 | NUR ---
Vinyl Installer in to talk to patient. Patient states lives at home with her son. There are 4 steps in the home. Physician: Dr. Jag Lara Pharmacy: [facility] Home health services: none Patient's level of ADLs: MINIMAL ASSIST Patient has working utilities: yes DME: cane Follow-up physician's appointment after d/c: she prefers to make her own follow up appt after discharge Does patient want to access PORTAL?: no Discharge plan discussed with patient. She lives at home with her son. She is independent in her ADLs and ambulates with a cane. Discussed home health care services and she denies any home needs at this time. When medically stable she will be discharged to home. FLAQUITA JETER
[2018-11-16 12:00] VITALS: BP 154/70
[2018-11-16] MEDS ORDERED: PROTONIX40 MG PO (13:24)
[2018-11-16] MEDS ORDERED: VITAMIN D22000 UNIT PO (13:28)
--- NOTE | 2018-11-16 14:56 | NUR ---
Discharge instructions reviewed with patient. Patient receptive and verbalizes understanding. Follow-up care arranged. Written instructions given to patient. SHE IS WAITING FOR RIDE FROM HER DAUGHTER FOR DISCHARGE. SEAN CUEVAS
--- NOTE | 2018-11-16 16:30 | NUR ---
[facility], FOR TRANSPORT HOME BY PRIVATE VEHICLE WITH DAUGHTER.
== END 2018-11-16 16:30 | disposition home or self-care (01) | DRG 392 ==
LOC: ED 23:22 → 5E 11-14 03:28 → EDHOLD 11-14 03:28 → 5E 11-14 03:51
PROVIDERS: Emergency Medicine Emergency Medical Services; Family Medicine; ADMIT Internal Medicine
PROC: 0DB78ZX Excision of Stomach, Pylorus, Via Natural or Artificial Opening Endoscopic, Diagnostic (ICD-10-PCS; principal; 2018-11-14)
DX: K52.9 Noninfective gastroenteritis and colitis, unspecified (principal); I50.32 Chronic diastolic (congestive) heart failure; Z68.43 Body mass index [BMI] 50.0-59.9, adult; K76.0 Fatty (change of) liver, not elsewhere classified; E87.8 Other disorders of electrolyte and fluid balance, not elsewhere classified; E55.9 Vitamin D deficiency, unspecified; D72.829 Elevated white blood cell count, unspecified; I11.0 Hypertensive heart disease with heart failure; E87.5 Hyperkalemia; K57.30 Diverticulosis of large intestine without perforation or abscess without bleeding; M17.10 Unilateral primary osteoarthritis, unspecified knee; R73.03 Prediabetes; E66.01 Morbid (severe) obesity due to excess calories; K29.60 Other gastritis without bleeding; E86.9 Volume depletion, unspecified; R51 Headache; Z88.1 Allergy status to other antibiotic agents; Z88.6 Allergy status to analgesic agent; Z87.01 Personal history of pneumonia (recurrent); Z90.49 Acquired absence of other specified parts of digestive tract; Z83.3 Family history of diabetes mellitus; Z82.0 Family history of epilepsy and other diseases of the nervous system; Z84.89 Family history of other specified conditions; Z82.49 Family history of ischemic heart disease and other diseases of the circulatory system; Z82.3 Family history of stroke; Z79.899 Other long term (current) drug therapy; Z71.3 Dietary counseling and surveillance

== ENCOUNTER 2019-02-05 12:18 | Inpatient (IN) | payer MEDICARE ==
[~2019-02-05] VITALS: Ht 157.4 cm; Wt 133.5 kg
--- NOTE | ~2019-02-05 | EKG ---
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: : 1955 Requested By: XIOMARA RODRIGUEZ Order Number: [id number] Reading MD: Kev Silver MD Measurements Intervals [place] Rate: 82 P: 60 UT: 140 QRS: -33 QRSD: 88 T: 73 QT: 355 QTc: 415 Interpretive Statements Sinus rhythm Abnormal R-wave progression, late transition LVH with secondary repolarization abnormality Compared to ECG 11/13/2018 23:48:15 Left ventricular hypertrophy now present Early repolarization now present Left anterior fascicular block no longer present Electronically Signed On 02-08-2019 7:54:39 PDT by Kev Silver MD CM:EKGRPT:ELECTROCARDIOGRAM REPORT [id number] XIOMARA CRUZ DRAFT REPORT XIOMARA SEAY
--- NOTE | ~2019-02-05 | PR ---
[place], [place] PROGRESS NOTE [id number] UNIT #: [id number] ROOM: 425 DOCTOR: WENDI MITCHELL MD BIRTHDATE: [birth year] DOS: SUBJECTIVE: The patient has been admitted to hospital from Emergency Department with feeling of cold and cough with acute exacerbation of COPD with emphysema with a headache and difficulty breathing and was also feeling some dizziness. The patient is feeling much better today. She denies any fever or chills. No headache, no chest pain. Ultrasound of the carotid artery done, which shows less than 50% stenosis of the bilateral internal carotid arteries, so that she is fairly good. Blood culture is negative on 2 different occasions. OBJECTIVE: VITAL SIGNS: Her blood pressure 138/54, pulse 71, respirations 20, temperature 97.4. CHEST: Showing occasional wheeze. No crepitation. HEART: Regular. ABDOMEN: Soft. WENDI MITCHELL MD CM:PNTRANS [id number] WENDI MITCHELL MD 02/08/19 0500 interface
--- NOTE | ~2019-02-05 | WRIGHTHP ---
[place], [place] PATIENT HISTORY AND PHYSICAL EXAM [id number] UN[facility] #: [id number] ROOM: 425 DOCTOR: WENDI MITCHELL MD BIRTHDATE: [birth year] DOS: 02/05/2019 HISTORY OF PRESENT ILLNESS: The patient has been admitted to the hospital from the Emergency Department with history of feeling of headache, cough and bringing up sputum, running nose, difficulty in breathing and she came to Emergency Department from where she was admitted to hospital with possible acute bronchitis and difficulty breathing or dizziness. The patient was admitted last time in October of this year. PAST MEDICAL HISTORY: She had plastic aortic valve mass, blurred vision bilaterally, chest pain, chronic diastolic congestive heart failure, diverticulosis, degenerative joint disease, essential hypertension, hematuria, hepatic steatosis, hyperglycemia, hypertension, low serum HDL, left ventricular hypertrophy, morbid obesity, vertigo and vitamin D deficiency. PAST SURGICAL HISTORY: The patient has surgical history of mandibular surgery, appendectomy and eye surgery. SOCIAL HISTORY: The patient does not drink, does not smoke, does not use any drugs. FAMILY HISTORY: Father at 76 because of Lyme disease. He had history of seizure disorder. Mother at 68 because of diabetes. ALLERGIES: She is allergic to TETRACYCLINE AND IBUPROFEN. MEDICATIONS: The patient has been taking following medications at home: Lisinopril/hydrochlorothiazide 10/12.5 daily and naproxen 500 mg 12 hours p.r.n. PHYSICAL EXAMINATION: GENERAL: The patient is conscious, alert and oriented, sitting comfortably in the chair. She denies any chest pain and some difficulty breathing, but she is also having some running of nose and cough, but she states that she is better than yesterday. VITAL SIGNS: Her blood pressure is 142/82, pulse 84, respirations are 85, pulse oximetry is 95%, 5 feet 2 inches tall, weighing 286 pounds, body mass is 42.4 indicating severe obesity. HEENT: Shows congestion of nose and throat. Ears are normal. NECK: Lymph nodes are not enlarged in the neck. Trachea is central. HEART: Regular, no murmur. LUNGS: Showing few wheezing. No crepitation. ABDOMEN: Soft. Liver and spleen not palpable. No area of tenderness. No hepatosplenomegaly. EXTREMITIES: No edema of leg. LABORATORY DATA: Her troponin level done 2 times is normal. Her B12 level is 470. Thyroid profile is normal. CT of the head, no acute intracranial bleed or any evidence of stroke. Urine examination shows 1+ bacteria, trace of intact blood cells, otherwise normal. Chest x-ray is showing no acute pulmonary disease. Comprehensive metabolic profile showed glucose 104, chloride 108, [place], [place] PATIENT HISTORY AND PHYSICAL EXAM [facility] [id number] UNIT #: [id number] ROOM: 425 DOCTOR: WENDI MITCHELL MD BIRTHDATE: [birth year] C-reactive protein 2.09, other values are normal. ProBNP level is 120, which is normal. Protime is 10, which is normal. CBC showed white count 9200, hemoglobin 13.8, hematocrit 43.4. Rapid influenza test was negative. Strep throat was negative. Lactic acid showed 1.4, which was normal. EKG shows abnormal R-wave progression, later transitioned LVH, no acute changes compared to old EKG. DIAGNOSES: Upper respiratory infection with respiratory difficulty with morbid obesity, hypertension with degenerative arthritis, hepatic steatosis, hyperglycemia and with vertigo. PLAN OF TREATMENT: The patient will be admitted to hospital and observed closely. Repeat troponin level will be done and treated with her home medication and received methylprednisolone 125 mg IV every 8 hours and ceftriaxone 1 gram IV daily and azithromycin 500 mg IV daily. WENDI MITCHELL MD CM:HISPHYS:PATIENT HISTORY AND PHYSICAL EXAMINATION [id number] WENDI MITCHELL MD 02/06/19 1335 interface
[~2019-02-05 12:18] MED LIST changes: +NAPROXEN500 MG PO; +PROTONIX40 MG PO; +VITAMIN D22000 UNIT PO; +ZESTORETIC 20-1 EACH PO
[2019-02-05 12:19] VITALS: BP 169/72
[2019-02-05 13:05] LABS: BASO # 0.1 10*3/uL (0.0-0.1); BASO % 0.5 % (0.0-1.0); EOS # 0.2 10*3/uL (0.0-0.4); EOS % 2.2 % (1.0-4.0); HEMATOCRIT 43.4 % (37.0-47.0); HEMOGLOBIN 13.8 g/dl (12.0-16.0); LYMPH # 1.5 10*3/uL (1.3-4.4); LYMPH % 15.7 % (27.0-41.0); MEAN CELL VOLUME 91.2 fl (81.0-99.0); MEAN CORPUSCULAR HGB CONC 31.8 g/dl (33.0-37.0); MEAN PLATELET VOLUME 9.7 fl (9.6-12.3); MONO # 0.6 10*3/uL (0.1-1.0); MONO % 6.9 % (3.0-9.0); NEUT # 6.9 10*3/uL (2.3-7.9); NEUT % 74.5 % (47.0-73.0); PLATELET COUNT AUTOMATED 266 10*3/uL (130-400); RED BLOOD COUNT 4.76 10*6/uL (4.10-5.10); RED CELL DISTRI WIDTH 14.6 % (0-14.5); WHITE BLOOD COUNT 9.2 10*3/uL (4.8-10.8)
--- NOTE | 2019-02-05 13:07 | NUR ---
THE MED WAS GIVEN IM. THIS WAS APPROVED BY GEENA RODRIGUEZ. THE PT DID NOT HAVE IV ACCESS
[2019-02-05 13:20] LABS: ALBUMIN 3.2 gm/dl (3.1-4.5); ALKALINE PHOSPHATASE 91 U/L (45-117); BUN 14 mg/dl (7-24); CHLORIDE 108 mmol/L (98-107); CREATININE 0.91 mg/dL (0.55-1.02); LIPASE 89 U/L (73-393); POTASSIUM 3.8 mmol/L (3.5-5.1); SGOT/AST 17 IU/L (3-35); SGPT/ALT 25 U/L (12-78); SODIUM 142 mmol/L (136-145); TOTAL PROTEIN 7.5 gm/dL (6.4-8.2)
--- NOTE | 2019-02-05 13:21 | NUR ---
WHEN THE PATIENT SAT UP AND GOT OFF OF THE CART TO GO TO THE RESTROOM SHE EXPERIENCED AN EPISODE OF DIZZINESS. THIS NURSE OFFERED A W/C TO TAKE HER TO THE RESTROOM BUT SHE DECLINCED. THIS NURSE DID WALK BESIDE HER TO AND FROM. GEENA RODRIGUEZ NOFIIED OF DIZZINESS EPISODE
[2019-02-05 13:25] LABS: ACT PARTIAL THROMBO TIME 24.7 SECONDS (20.8-31.5); INTERNATIONAL NORM RATIO 0.9 (2.0-3.5)
[2019-02-05 13:28] LABS: TROPONIN I < 0.015 ng/ml (<0.045)
[2019-02-05 13:39] LABS: BILIRUBIN NEGATIVE (NEGATIVE); BLOOD TRACE-INTACT (NEGATIVE); CLARITY CLEAR (CLEAR); COLOR YELLOW (YELLOW); GLUCOSE NEGATIVE (NEGATIVE); KETONE NEGATIVE (NEGATIVE); LEUKO ESTERASE NEGATIVE (NEGATIVE); NITRITE NEGATIVE (NEGATIVE); UROBILINOGEN 0.2 E.U./dl (0.2-1.0)
[2019-02-05 13:49] LABS: HYALINE CAST 0-2
[2019-02-05 13:50] LABS: BACTERIA 1+; RBC 0-2 rbc/hpf (0-2); WBC 0-2 wbc/hpf (0-5)
[2019-02-05 13:59] VITALS: BP 148/63
[2019-02-05 16:03] VITALS: BP 155/77
[2019-02-05 16:53] VITALS: BP 126/61
--- NOTE | 2019-02-05 16:56 | NUR ---
HAS BEEN NOTIFIED OF NEW CONSULT.
--- NOTE | 2019-02-05 17:00 | NUR ---
A 63, admitted to , under the services of AYLA Persaud MD with a diagnosis of DIZZINESS, UNABLE TO AMBULATE. Chief complaint is DIZZINESS. Patient arrived via bed from ER. Monitor applied. Initial assessment completed. Vital signs taken and recorded. AYLA PERSAUD MD notified of admission to the unit. Orders received. See assessment for past medical history, medications and allergies. Patient and/or family oriented to unit. [facility] visitation policy reviewed. Clothing/patient valuable form completed. SHLOMO GUERRERO
[2019-02-05 17:13] VITALS: BP 155/80
[2019-02-05] MEDS ORDERED: VITAMIN E200 UNI2 PO (17:48)
[2019-02-05] MEDS ORDERED: LISINOPRIL20 MG PO (18:40)
[2019-02-05] MEDS ORDERED: HYDROCHLOROTH12.5 M3 PO (18:40)
[2019-02-05 19:04] LABS: TROPONIN I < 0.015 ng/ml (<0.045)
[2019-02-05 19:09] LABS: THYROID STIM HORMONE (HS) 0.637 uIU/ml (0.358-4.75)
[2019-02-05 20:00] VITALS: BP 130/69
--- NOTE | 2019-02-05 21:31 | NUR ---
DR SCHUSTER NOTIFIED PT REQUESTING TYLENOL FOR C/O HEADACHE. STATES HE WILL PUT ORDER IN.
--- NOTE | 2019-02-05 23:11 | NUR ---
PT STATES TYLENOL EFFECTIVE FOR HEADACHE PAIN.
[2019-02-06] VITALS: BP 138/66
--- NOTE | 2019-02-06 05:24 | NUR ---
TYLENOL GIVEN PER REQUEST FOR C/O HEADACHE.
[2019-02-06 12:00] VITALS: BP 145/59
[2019-02-06 16:00] VITALS: BP 117/50
[2019-02-06 20:00] VITALS: BP 102/54
[2019-02-07] VITALS: BP 125/64
--- NOTE | 2019-02-07 03:09 | NUR ---
TYLENOL GIVEN FOR C/O HEADACHE
--- NOTE | 2019-02-07 10:45 | NUR ---
PHYSICAL THERAPY PATIENT SEEN TODAY ON LEVEL 4 FOR SCREEN AND FOUND TO BE UP AD CHRIS IN ROOM WITH NO AD AND STATING SHE DOES NOT NEED ANY PT SERVICES. THANK YOU FOR REFERRAL [facility] PT
[2019-02-07 12:00] VITALS: BP 133/72; BP 138/54
[2019-02-07 16:00] VITALS: BP 138/66
[2019-02-07 20:00] VITALS: BP 145/76
--- NOTE | 2019-02-07 20:00 | NUR ---
IV SITE TO RT ARM SYMPTOMATIC; SITE DISCONTINUED AND RESTARTED IN LT AC PT TOLERATED WELL. IV ABX RUNNING PER ORDERS.
[2019-02-08] VITALS: BP 105/40
--- NOTE | 2019-02-08 03:53 | NUR ---
PATIENT MEDICATED WITH TYLENOL PER PRN ORDER FOR C/O HEADACHE. RATED PAIN A 8/10 WITH 10 BEING THE WORST. SEE EMAR. REINFORCED USE OF CALL LIGHT.
--- NOTE | 2019-02-08 07:57 | NUR ---
PHYSICAL THERAPY Nursing screen received. PAtient with no PT needs. PAtient (I) per covering PT's therapists note. Thank you. Shana Au,PT
[2019-02-08 08:00] VITALS: BP 138/58
--- NOTE | 2019-02-08 09:00 | NUR ---
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 Patient states lives at home with son. There are few steps in the home. Physician: shoaib [facility] Home health services: none Patient's level of ADLs: INDEPENDENT Patient has working utilities: all working DME: cane Follow-up physician's appointment after d/c: patient prefers to make own follow up doctor's appointment Does patient want to access PORTAL?: no Discharge plan discussed with patient, patient lives at home patient states she will be going home when able and denies any home needs. AMRITA ROSENBERG
[2019-02-08 12:00] VITALS: BP 132/66
[2019-02-08 16:00] VITALS: BP 134/57
[2019-02-08 20:00] VITALS: BP 133/80
--- NOTE | 2019-02-08 20:06 | NUR ---
TYLENOL GIVEN FOR C/O HEADACHE
[2019-02-09] VITALS: BP 134/58
[2019-02-09 06:28] LABS: BUN 23 mg/dl (7-24); CHLORIDE 106 mmol/L (98-107); CREATININE 0.79 mg/dL (0.55-1.02); POTASSIUM 3.9 mmol/L (3.5-5.1); SODIUM 141 mmol/L (136-145)
[2019-02-09 06:33] LABS: BASO % 0.4 % (0.0-1.0); EOS # 0.1 10*3/uL (0.0-0.4); EOS % 1.5 % (1.0-4.0); HEMATOCRIT 41.7 % (37.0-47.0); HEMOGLOBIN 13.1 g/dl (12.0-16.0); LYMPH # 1.9 10*3/uL (1.3-4.4); LYMPH % 20.2 % (27.0-41.0); MEAN CELL VOLUME 90.5 fl (81.0-99.0); MEAN CORPUSCULAR HGB 28.4 pg (27.0-31.0); MEAN CORPUSCULAR HGB CONC 31.4 g/dl (33.0-37.0); MEAN PLATELET VOLUME 9.9 fl (9.6-12.3); MONO # 0.5 10*3/uL (0.1-1.0); MONO % 5.4 % (3.0-9.0); NEUT # 6.8 10*3/uL (2.3-7.9); NEUT % 72.1 % (47.0-73.0); PLATELET COUNT AUTOMATED 255 10*3/uL (130-400); RED BLOOD COUNT 4.61 10*6/uL (4.10-5.10); RED CELL DISTRI WIDTH 15.1 % (0-14.5); WHITE BLOOD COUNT 9.5 10*3/uL (4.8-10.8)
[2019-02-09 08:00] VITALS: BP 118/70
--- NOTE | 2019-02-09 09:00 | NUR ---
case management visits with patient, patient will be going home when able and denies any home needs
[2019-02-09] MEDS ORDERED: LEVAQUIN750 M1 PO (11:58)
--- NOTE | 2019-02-09 13:11 | NUR ---
Discharge instructions reviewed with patient/family. Patient receptive and verbalizes understanding. Follow-up care arranged. Written instructions given to patient/family. JANE WIN
== END 2019-02-09 13:11 | disposition home or self-care (01) | DRG 871 ==
LOC: ED 12:18 → 4E 16:02 → EDHOLD 16:02 → 4E 16:22
PROVIDERS: Internal Medicine Nephrology; Physician Assistant; ADMIT Internal Medicine
DX: A41.9 Sepsis, unspecified organism (principal); J18.9 Pneumonia, unspecified organism; I50.32 Chronic diastolic (congestive) heart failure; Z68.43 Body mass index [BMI] 50.0-59.9, adult; J43.9 Emphysema, unspecified; R26.2 Difficulty in walking, not elsewhere classified; R42 Dizziness and giddiness; I11.0 Hypertensive heart disease with heart failure; M19.90 Unspecified osteoarthritis, unspecified site; K57.90 Diverticulosis of intestine, part unspecified, without perforation or abscess without bleeding; R73.9 Hyperglycemia, unspecified; J06.9 Acute upper respiratory infection, unspecified; I65.23 Occlusion and stenosis of bilateral carotid arteries; K76.0 Fatty (change of) liver, not elsewhere classified; R51 Headache; E66.01 Morbid (severe) obesity due to excess calories; E55.9 Vitamin D deficiency, unspecified; R73.03 Prediabetes; Z88.1 Allergy status to other antibiotic agents; Z88.6 Allergy status to analgesic agent; Z90.49 Acquired absence of other specified parts of digestive tract; Z82.0 Family history of epilepsy and other diseases of the nervous system; Z83.3 Family history of diabetes mellitus; Z82.3 Family history of stroke; Z82.49 Family history of ischemic heart disease and other diseases of the circulatory system; Z83.1 Family history of other infectious and parasitic diseases

== ENCOUNTER → 2019-03-04 | Outpatient (CLI) | payer MEDICARE ==
[~2019-03-04] MED LIST changes: +HYDR25T PO; +HYDROCHLOROTH12.5 M3 PO; +LEVAQUIN750 M1 PO; +LISINOPRIL20 MG PO; +VITAMIN E200 UNI2 PO; +Zestril,Prinivi40 MG PO
== END | disposition home or self-care (01) ==
LOC: US 12:26
DX: R31.9 Hematuria, unspecified (principal)

== ENCOUNTER 2019-04-14 15:40 | Emergency (ER) | payer MEDICARE ==
[~2019-04-14] VITALS: Ht 157.4 cm; Wt 128.4 kg
[~2019-04-14 15:40] MED LIST changes: -HYDR25T PO; -Zestril,Prinivi40 MG PO
[2019-04-14 15:41] VITALS: BP 144/92
== END 2019-04-14 16:19 | disposition home or self-care (01) ==
LOC: ED 15:40
DX: S90.861A Insect bite (nonvenomous), right foot, initial encounter (principal); Z88.1 Allergy status to other antibiotic agents; Z88.8 Allergy status to other drugs, medicaments and biological substances; Z79.2 Long term (current) use of antibiotics; Z79.899 Other long term (current) drug therapy; Z90.49 Acquired absence of other specified parts of digestive tract; W57.XXXA Bitten or stung by nonvenomous insect and other nonvenomous arthropods, initial encounter; Y93.89 Activity, other specified; Y92.89 Other specified places as the place of occurrence of the external cause; Y99.8 Other external cause status

== ENCOUNTER → 2019-04-19 | Outpatient (CLI) | payer MEDICARE ==
[~2019-04-19] MED LIST changes: +HYDR25T PO; +Zestril,Prinivi40 MG PO
== END | disposition home or self-care (01) ==
LOC: CT 01:38
DX: N28.1 Cyst of kidney, acquired (principal); K57.30 Diverticulosis of large intestine without perforation or abscess without bleeding; K76.0 Fatty (change of) liver, not elsewhere classified; N39.0 Urinary tract infection, site not specified; Z80.51 Family history of malignant neoplasm of kidney

== ENCOUNTER 2019-06-15 07:05 | Inpatient (IN) | payer MEDICARE ==
[~2019-06-15] VITALS: Ht 157.5 cm; Wt 133.5 kg
[2019-06-15] VITALS (10 sets, daily range): BP systolic 122–195; BP diastolic 50–100
--- NOTE | ~2019-06-15 | EKG ---
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
--- NOTE | ~2019-06-15 | EKG ---
[place], [place] ELECTROCARDIOGRAM REPORT NAME: RENNY BROWN UNIT #: [id number] ROOM: 415 DOCTOR: NANCY DRAFT REPORT BIRTHDATE: [birth year] [facility] Test Date: 2019-06-15 Test Time: 13:22:16 Pat Name: RENNY BROWN Department: Room: 415 Gender: F Vendor Management Specialist: : 1955 Requested By: JOVANY OTOOLE Order Number: [id number] Reading MD: Jag Lara MD Measurements Intervals [place] Rate: 64 P: 65 SC: 156 QRS: -34 QRSD: 89 T: 36 QT: 394 QTc: 407 Interpretive Statements Sinus rhythm Abnormal R-wave progression, late transition Probable left ventricular hypertrophy Compared to ECG 02/05/2019 12:46:24 Early repolarization no longer present Electronically Signed On 06-16-2019 8:10:22 PDT by Jag Lara MD CM:EKGRPT:ELECTROCARDIOGRAM REPORT [id number] JOVANY CRUZ DRAFT REPORT JOVANY OTOOLE M.D.
--- NOTE | ~2019-06-15 | EKG ---
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
[~2019-06-15 07:05] MED LIST changes: -HYDR25T PO; -Zestril,Prinivi40 MG PO
[2019-06-15 07:24] LABS: BASO # 0.1 10*3/uL (0.0-0.1); BASO % 0.6 % (0.0-1.0); EOS # 0.2 10*3/uL (0.0-0.4); EOS % 2.3 % (1.0-4.0); HEMATOCRIT 41.5 % (37.0-47.0); HEMOGLOBIN 13.3 g/dl (12.0-16.0); LYMPH # 1.8 10*3/uL (1.3-4.4); LYMPH % 20.2 % (27.0-41.0); MEAN CELL VOLUME 91.2 fl (81.0-99.0); MEAN CORPUSCULAR HGB 29.2 pg (27.0-31.0); MEAN PLATELET VOLUME 9.7 fl (9.6-12.3); MONO # 0.5 10*3/uL (0.1-1.0); NEUT # 6.3 10*3/uL (2.3-7.9); NEUT % 70.7 % (47.0-73.0); PLATELET COUNT AUTOMATED 279 10*3/uL (130-400); RED BLOOD COUNT 4.55 10*6/uL (4.10-5.10); RED CELL DISTRI WIDTH 14.7 % (0-14.5)
[2019-06-15 07:36] LABS: ACT PARTIAL THROMBO TIME 28.2 SECONDS (20.0-32.1); INTERNATIONAL NORM RATIO 0.9 (2.0-3.5)
[2019-06-15 07:40] LABS: ALBUMIN 3.4 gm/dl (3.1-4.5); ALKALINE PHOSPHATASE 82 U/L (45-117); BUN 14 mg/dl (7-24); CHLORIDE 106 mmol/L (98-107); CREATININE 0.79 mg/dL (0.55-1.02); POTASSIUM 3.8 mmol/L (3.5-5.1); SGOT/AST 13 IU/L (3-35); SGPT/ALT 21 U/L (12-78); SODIUM 140 mmol/L (136-145); TOTAL PROTEIN 7.3 gm/dL (6.4-8.2)
[2019-06-15 07:43] LABS: TROPONIN I < 0.015 ng/ml (<0.045)
[2019-06-16 01:44] VITALS: BP 143/68
[2019-06-16 05:47] LABS: BUN 15 mg/dl (7-24); CHLORIDE 106 mmol/L (98-107); CREATININE 0.79 mg/dL (0.55-1.02); POTASSIUM 4.1 mmol/L (3.5-5.1); SODIUM 139 mmol/L (136-145)
[2019-06-16 08:00] VITALS: BP 162/92
[2019-06-16 12:00] VITALS: BP 152/76
[2019-06-16 16:00] VITALS: BP 150/64
[2019-06-17 11:45] VITALS: BP 137/59
[2019-06-17] MEDS ORDERED: Zestril,Prinivi40 MG PO (12:12)
[2019-06-17] MEDS ORDERED: HYDR25T PO (12:12)
== END 2019-06-17 13:18 | disposition home or self-care (01) | DRG 206 ==
LOC: ED 07:05 → 4E 08:29 → EDHOLD 08:29 → 4E 08:51
PROVIDERS: Emergency Medicine; ADMIT Internal Medicine
DX: M94.0 Chondrocostal junction syndrome [Tietze] (principal); I50.32 Chronic diastolic (congestive) heart failure; Z68.42 Body mass index [BMI] 45.0-49.9, adult; I16.0 Hypertensive urgency; I11.0 Hypertensive heart disease with heart failure; K57.30 Diverticulosis of large intestine without perforation or abscess without bleeding; M17.10 Unilateral primary osteoarthritis, unspecified knee; J44.9 Chronic obstructive pulmonary disease, unspecified; E66.01 Morbid (severe) obesity due to excess calories; K76.0 Fatty (change of) liver, not elsewhere classified; E55.9 Vitamin D deficiency, unspecified; H53.8 Other visual disturbances; R73.03 Prediabetes; Z88.8 Allergy status to other drugs, medicaments and biological substances; Z79.899 Other long term (current) drug therapy; Z87.01 Personal history of pneumonia (recurrent); Z90.49 Acquired absence of other specified parts of digestive tract; Z83.3 Family history of diabetes mellitus; Z82.3 Family history of stroke; Z82.49 Family history of ischemic heart disease and other diseases of the circulatory system; Z84.89 Family history of other specified conditions

== ENCOUNTER 2019-07-07 20:21 | Emergency (ER) | payer MEDICARE ==
[~2019-07-07] VITALS: Ht 157.4 cm; Wt 128.4 kg
--- NOTE | ~2019-07-07 | EKG ---
[place], [place] ELECTROCARDIOGRAM REPORT NAME: RENNY BROWN UNIT #: [id number] ROOM: DOCTOR: LAZAROANY DRAFT REPORT BIRTHDATE: [birth year] [facility] Test Date: 2019-07-07 Test Time: 20:43:19 Pat Name: RENNY BROWN Department: Room: Gender: F Vessel Scrapper: NORMA : 1955 Requested By: JENNIFER GARCIA PA-C Order Number: [id number] Reading MD: Ronny Shields MD Measurements Intervals [place] Rate: 75 P: 57 NE: 148 QRS: -29 QRSD: 95 T: 46 QT: 362 QTc: 405 Interpretive Statements Sinus rhythm Abnormal R-wave progression, late transition Probable left ventricular hypertrophy Baseline wander in lead(s) I,III,aVL Compared to ECG 06/15/2019 13:22:16 No significant changes Electronically Signed On 07-12-2019 17:52:22 PDT by Ronny Shields MD CM:EKGRPT:ELECTROCARDIOGRAM REPORT [id number] JENNIFER GARCIA PA-C EPIPHANY DRAFT REPORT JENNIFER GARCIA PA-C
[~2019-07-07 20:21] MED LIST changes: +HYDR25T PO; +Zestril,Prinivi40 MG PO
[2019-07-07 20:50] LABS: BASO # 0.1 10*3/uL (0.0-0.1); BASO % 0.6 % (0.0-1.0); EOS # 0.2 10*3/uL (0.0-0.4); EOS % 2.5 % (1.0-4.0); HEMATOCRIT 38.5 % (37.0-47.0); HEMOGLOBIN 12.3 g/dl (12.0-16.0); LYMPH # 1.9 10*3/uL (1.3-4.4); LYMPH % 22.1 % (27.0-41.0); MEAN CELL VOLUME 92.5 fl (81.0-99.0); MEAN CORPUSCULAR HGB 29.6 pg (27.0-31.0); MEAN CORPUSCULAR HGB CONC 31.9 g/dl (33.0-37.0); MEAN PLATELET VOLUME 9.8 fl (9.6-12.3); MONO # 0.5 10*3/uL (0.1-1.0); MONO % 6.2 % (3.0-9.0); NEUT # 5.8 10*3/uL (2.3-7.9); NEUT % 68.4 % (47.0-73.0); PLATELET COUNT AUTOMATED 251 10*3/uL (130-400); RED BLOOD COUNT 4.16 10*6/uL (4.10-5.10); WHITE BLOOD COUNT 8.4 10*3/uL (4.8-10.8)
[2019-07-07 21:04] LABS: BILIRUBIN NEGATIVE (NEGATIVE); BLOOD TRACE-LYSED (NEGATIVE); CLARITY SL CLOUDY (CLEAR); COLOR YELLOW (YELLOW); GLUCOSE NEGATIVE (NEGATIVE); KETONE NEGATIVE (NEGATIVE); LEUKO ESTERASE TRACE (NEGATIVE); NITRITE NEGATIVE (NEGATIVE); PH 5.5 (5.0-9.0); SPECIFIC GRAVITY 1.025 (1.005-1.030); UROBILINOGEN 0.2 E.U./dl (0.2-1.0)
[2019-07-07 21:06] LABS: ALBUMIN 3.3 gm/dl (3.1-4.5); ALKALINE PHOSPHATASE 85 U/L (45-117); BUN 17 mg/dl (7-24); CHLORIDE 110 mmol/L (98-107); CREATININE 0.95 mg/dL (0.55-1.02); LIPASE 119 U/L (73-393); POTASSIUM 3.9 mmol/L (3.5-5.1); SGOT/AST 15 IU/L (3-35); SGPT/ALT 23 U/L (12-78); SODIUM 143 mmol/L (136-145); TOTAL PROTEIN 7.3 gm/dL (6.4-8.2)
[2019-07-07 21:08] LABS: TROPONIN I < 0.015 ng/ml (<0.045)
[2019-07-07 21:09] LABS: ACT PARTIAL THROMBO TIME 27.1 SECONDS (20.0-32.1); INTERNATIONAL NORM RATIO 0.9 (2.0-3.5)
[2019-07-07 21:15] LABS: BACTERIA 1+; YEAST TRACE
[2019-07-07 22:05] VITALS: BP 154/68
== END 2019-07-07 22:30 | disposition home or self-care (01) ==
LOC: ED 20:21
PROVIDERS: Physician Assistant
DX: I10 Essential (primary) hypertension (principal); R51 Headache; R20.0 Anesthesia of skin; R42 Dizziness and giddiness; Z88.1 Allergy status to other antibiotic agents; Z88.8 Allergy status to other drugs, medicaments and biological substances; Z79.899 Other long term (current) drug therapy

== ENCOUNTER 2019-07-09 13:56 | Inpatient (IN) | payer MEDICARE ==
[~2019-07-09] VITALS: Wt 130.7 kg
--- NOTE | ~2019-07-09 | EKG ---
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
[2019-07-09 13:56] VITALS: BP 204/87
[2019-07-09 14:21] VITALS: BP 142/80
[2019-07-09 14:28] VITALS: BP 142/80
[2019-07-09 14:42] LABS: BASO # 0.1 10*3/uL (0.0-0.1); BASO % 0.6 % (0.0-1.0); EOS # 0.2 10*3/uL (0.0-0.4); EOS % 2.5 % (1.0-4.0); HEMATOCRIT 39.4 % (37.0-47.0); HEMOGLOBIN 12.6 g/dl (12.0-16.0); LYMPH # 1.6 10*3/uL (1.3-4.4); LYMPH % 20.4 % (27.0-41.0); MEAN CELL VOLUME 92.5 fl (81.0-99.0); MEAN CORPUSCULAR HGB 29.6 pg (27.0-31.0); MEAN PLATELET VOLUME 9.9 fl (9.6-12.3); MONO # 0.6 10*3/uL (0.1-1.0); MONO % 6.9 % (3.0-9.0); NEUT # 5.5 10*3/uL (2.3-7.9); NEUT % 69.3 % (47.0-73.0); PLATELET COUNT AUTOMATED 249 10*3/uL (130-400); RED BLOOD COUNT 4.26 10*6/uL (4.10-5.10); RED CELL DISTRI WIDTH 14.6 % (0-14.5); WHITE BLOOD COUNT 7.9 10*3/uL (4.8-10.8)
[2019-07-09 14:52] LABS: ACT PARTIAL THROMBO TIME 27.9 SECONDS (20.0-32.1); INTERNATIONAL NORM RATIO 0.9 (2.0-3.5)
[2019-07-09 14:57] LABS: ALBUMIN 3.2 gm/dl (3.1-4.5); ALKALINE PHOSPHATASE 77 U/L (45-117); BUN 14 mg/dl (7-24); CHLORIDE 109 mmol/L (98-107); CREATININE 0.88 mg/dL (0.55-1.02); LIPASE 99 U/L (73-393); POTASSIUM 3.8 mmol/L (3.5-5.1); SGOT/AST 12 IU/L (3-35); SGPT/ALT 21 U/L (12-78); SODIUM 141 mmol/L (136-145); TROPONIN I < 0.015 ng/ml (<0.045)
[2019-07-09 15:00] VITALS: BP 184/85
[2019-07-09 15:21] LABS: BILIRUBIN NEGATIVE (NEGATIVE); BLOOD NEGATIVE (NEGATIVE); CLARITY CLEAR (CLEAR); COLOR YELLOW (YELLOW); GLUCOSE NEGATIVE (NEGATIVE); KETONE NEGATIVE (NEGATIVE); LEUKO ESTERASE NEGATIVE (NEGATIVE); NITRITE NEGATIVE (NEGATIVE); UROBILINOGEN 0.2 E.U./dl (0.2-1.0)
[2019-07-09 15:38] LABS: EPITHELIAL CELLS 0-2; WBC 0-2 wbc/hpf (0-5)
[2019-07-09 16:06] VITALS: BP 152/72
--- NOTE | 2019-07-09 16:36 | NUR ---
A 64, admitted to , under the services of AYLA Persaud MD with a diagnosis of HYPERTENSIVE EMERGENCY. Chief complaint is HTN,SOB WITH EXERTION,CHEST TIGHTNESS,BERGER. Patient arrived via stretcher from ER. Monitor applied. Initial assessment completed. Vital signs taken and recorded. AYLA PERSAUD MD notified of admission to the unit. Orders received. See assessment for past medical history, medications and allergies. Patient and/or family oriented to unit. [facility] visitation policy reviewed. Clothing/patient valuable form completed. CARIAS
[2019-07-09] MEDS ORDERED: VESICARE5 MG PO (17:32)
[2019-07-09] MEDS ORDERED: NORVASC5 MG PO (17:33)
--- NOTE | 2019-07-09 19:20 | NUR ---
DR TA UPDATED ON PT'S C/O RETURNING BERGER. NEW ORDERS RECEIVED.
[2019-07-09 20:00] VITALS: BP 123/48
--- NOTE | 2019-07-09 21:09 | NUR ---
PATIENT RECEIVED TYLENOL FOR HEADACHE RATED 5/10.
[2019-07-10] VITALS (7 sets, daily range): BP systolic 136–158; BP diastolic 59–90
--- NOTE | 2019-07-10 | NUR ---
RESTING IN BED; VOICES NO C/O AT THIS TIME. TYLENOL GIVEN EARLIER APPARENTLY EFFECTIVE. CALL LIGHT WITHIN REACH.
--- NOTE | 2019-07-10 03:15 | NUR ---
CALLED DR. CORNEJO PERTAINING TO PT. STATING THAT HER BLOOD PRESSURE WAS ELEVATED. SEE VITAL SIGN FLOW SHEET. NO NEW ORDERS RECEIVED.
--- NOTE | 2019-07-10 03:20 | NUR ---
MEDICATED WITH TYLENOL FOR C/O HEADACHE.
--- NOTE | 2019-07-10 06:30 | NUR ---
RESTING IN BED WITH EYES CLOSED; TYLENOL GIVEN EARLIER APPARENTLY EFFECTIVE. CALL LIGHT WITHIN REACH.
[2019-07-10 07:17] LABS: CHLORIDE 108 mmol/L (98-107); POTASSIUM 3.8 mmol/L (3.5-5.1); SODIUM 140 mmol/L (136-145)
[2019-07-10 07:21] LABS: BUN 15 mg/dl (7-24); CREATININE 0.67 mg/dL (0.55-1.02)
--- NOTE | 2019-07-10 14:02 | NUR ---
Notified Dr. Lara that patient was c/o H/A and requested her blood pressure be taken. See vitals. Physician reviewed medications and vitals. See new orders.
--- NOTE | 2019-07-10 21:38 | NUR ---
PATIENT REQUESTING MEDICATION FOR HEADACHE. TYLENOL ADMINISTERED PRESCRIBED. WILL MONITOR FOR EFFECTIVENESS.
--- NOTE | 2019-07-10 22:38 | NUR ---
PATIENT RESTING WITH EYES CLOSED. RESPIRATIONS EASY AND UNLABORED. CALL LIGHT WITHIN REACH. WILL MONITOR.
[2019-07-11] VITALS: BP 140/61
--- NOTE | 2019-07-11 01:12 | NUR ---
24 HR chart check completed.
[2019-07-11 03:25] VITALS: BP 182/82
--- NOTE | 2019-07-11 03:25 | NUR ---
PATIENT C/O DIZZINESS AND NAUSEA WITH 1 EPISODE OF EMESIS (UNSEEN). BP 182/[address] TA CALLED. NEW ORDERS RECEIVED- SEE EMAR.
--- NOTE | 2019-07-11 03:49 | NUR ---
PATIENT MEDICATED WITH IV APRESOLINE AND ZOFRAN FOR HBP AND NAUSEA. WILL MONITOR FOR EFFECTIVENESS.
[2019-07-11 06:11] LABS: BUN 17 mg/dl (7-24); CHLORIDE 106 mmol/L (98-107); CREATININE 0.88 mg/dL (0.55-1.02); POTASSIUM 3.8 mmol/L (3.5-5.1); SODIUM 141 mmol/L (136-145)
--- NOTE | 2019-07-11 07:53 | NUR ---
TYLENOL GIVEN FOR C/O HEADACHE. WILL MONITOR.
[2019-07-11 08:00] VITALS: BP 128/64
--- NOTE | 2019-07-11 09:00 | NUR ---
TYLENOL APPEARS EFFECTIVE, PT LYING IN BED WITH EYES CLOSED.
[2019-07-11 12:00] VITALS: BP 137/56
--- NOTE | 2019-07-11 15:00 | NUR ---
DR. TA NOTIFIED OF PT'S CONTINUED C/O H/A. N.O. RCVD FOR NORCO 5/325MG PO 1 TAB EVERY 6 HRS PRN PAIN AND STAT CT WITHOUT CONTRAST OF HEAD.
--- NOTE | 2019-07-11 15:00 | NUR ---
ASSUMED CARE FOR THIS PT AT THIS TIME. PT C/O CONTINUOUS H/A POSTERIOR AND IN NECK THAT RADIATES TO BILATERAL SIDES OF HEAD. PT DENIES DIZZINESS OR NAUSEA OR SOUND/LIGHT SENSITIVITY. PT STATES THAT TYLENOL HAS BEEN INEFFECTIVE. STATES PAIN IS 9/[address] WILL [address]. TA FOR ORDERS. CALL LIGHT IN REACH.
--- NOTE | 2019-07-11 15:20 | NUR ---
PT MEDICATED W/NORCO FOR C/O POST NECK PAIN RADIATING TO SIDES OF HEAD. 06/29
[2019-07-11 16:00] VITALS: BP 136/58
[2019-07-11 20:00] VITALS: BP 123/49
--- NOTE | 2019-07-11 21:07 | NUR ---
PT MEDICATED W/NORCO FOR C/O H/A 05/29. PT RESTING QUIETLY IN BED W/LIGHTS OFF. WILL MONITOR FOR EFFECTIVENESS.
[2019-07-12] VITALS: BP 105/48
--- NOTE | 2019-07-12 00:25 | NUR ---
EARLIER PAIN MED EFFECTIVE. RESTING IN BED WITH EYES CLOSED. APPEARS TO BE SLEEPING. HEP LOCK INTACT. NO DISTRESS NOTED.
--- NOTE | 2019-07-12 01:15 | NUR ---
PT TRANSFERRED TO 424 VIA BED WITH BELONGINGS DUE TO ROOMATE HAVING NAUSEA AND DIARRHEA. ORIENTED TO NEW ROOM.
--- NOTE | 2019-07-12 02:01 | NUR ---
RESTING IN BED WITH EYES CLOSED. APPEARS TO BE SLEEPING.
--- NOTE | 2019-07-12 05:33 | NUR ---
0530 NORVA PO FOR C/O'S H/A. BP CHECKED PER PT REQUSET. IS 128/83. WILL MONITOR.
--- NOTE | 2019-07-12 06:04 | NUR ---
EARLIER NORCO EFFECTIVE. NO FURTHER C/O'S VOICED. CONDITION GUARDED.
[2019-07-12 06:59] LABS: BASO % 0.6 % (0.0-1.0); EOS # 0.1 10*3/uL (0.0-0.4); EOS % 2.1 % (1.0-4.0); HEMATOCRIT 40.8 % (37.0-47.0); HEMOGLOBIN 13.3 g/dl (12.0-16.0); LYMPH # 1.2 10*3/uL (1.3-4.4); LYMPH % 19.2 % (27.0-41.0); MEAN CELL VOLUME 90.5 fl (81.0-99.0); MEAN CORPUSCULAR HGB 29.5 pg (27.0-31.0); MEAN CORPUSCULAR HGB CONC 32.6 g/dl (33.0-37.0); MONO # 0.5 10*3/uL (0.1-1.0); MONO % 8.5 % (3.0-9.0); NEUT # 4.3 10*3/uL (2.3-7.9); NEUT % 69.1 % (47.0-73.0); PLATELET COUNT AUTOMATED 265 10*3/uL (130-400); RED BLOOD COUNT 4.51 10*6/uL (4.10-5.10); RED CELL DISTRI WIDTH 14.7 % (0-14.5); WHITE BLOOD COUNT 6.3 10*3/uL (4.8-10.8)
[2019-07-12 08:00] VITALS: BP 136/84
--- NOTE | 2019-07-12 08:00 | NUR ---
PT RESTING IN BED. RESP-EASY AND REGULAR. NO C/O AT THIS TIME. CALL LIGHT IN REACH. SEE SHIFT ASSESSMENT.
--- NOTE | 2019-07-12 10:00 | NUR ---
TOLERATED ROUTINE MED WITH NO PROBLEM. NO C/O AT THIS TIME. CALL LIGHT IN REACH.
--- NOTE | 2019-07-12 11:00 | NUR ---
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 Patient states lives at home with son. There are 3 steps in the home. Physician: Dr. Jag Lara Pharmacy: [facility] Home health services: none Patient's level of ADLs: minimal assistance Patient has working utilities: yes DME: cane Follow-up physician's appointment after d/c: she prefers to make her own follow up appointment after discharge Does patient want to access PORTAL?: no Discharge plan discussed with patient. She lives at home with her son. She is independent in her ADLs and uses a cane occasionally when ambulating if her knee is swollen. Discussed home health care services and she denies any home needs at this time. When medically stable she will be discharged to home. Her son or daughter will provide transportation on discharge. FLAQUITA JETER
--- NOTE | 2019-07-12 11:00 | NUR ---
PT BATHED AND RESTING IN BED. NO C/O AT THIS TIME. CALL LIGHT IN REACH.
[2019-07-12 11:38] VITALS: BP 132/88
--- NOTE | 2019-07-12 12:22 | NUR ---
PT SITTING UP AT SIDE OF BED. NO C/O AT THIS TIME. CALL LIGHT IN REACH.
[2019-07-12 12:37] VITALS: BP 132/88
[2019-07-12] MEDS ORDERED: AMLODIPINE BESY10 MG PO (15:14)
[2019-07-12] MEDS ORDERED: TOPAMAX25 M3 PO (15:14)
[2019-07-12] MEDS ORDERED: APRESOLINE10 MG PO (15:14)
--- NOTE | 2019-07-12 15:24 | NUR ---
PT C/O HEADACHE, MEDICATED WITH NORCO PO PER PRN ORDER, SEE EMAR. RATES PAIN 7 ON PAIN SCALE 0-10. CALL LIGHT IN REACH.
--- NOTE | 2019-07-12 15:29 | NUR ---
Discharge instructions reviewed with patient/family. Patient receptive and verbalizes understanding. Follow-up care arranged. Written instructions given to patient/family. HEPLOCK REMOVED 2X2 APPLIED. MONITOR REMOVED. AMAN BURTON
[2019-07-12 15:49] VITALS: BP 125/44
== END 2019-07-12 15:29 | disposition home or self-care (01) | DRG 305 ==
LOC: ED 13:56 → EDHOLD 15:51 → 4E 15:51
PROVIDERS: Nurse Practitioner Family; ADMIT Internal Medicine
DX: I16.0 Hypertensive urgency (principal); I50.32 Chronic diastolic (congestive) heart failure; Z68.43 Body mass index [BMI] 50.0-59.9, adult; R42 Dizziness and giddiness; I11.0 Hypertensive heart disease with heart failure; R07.9 Chest pain, unspecified; J44.9 Chronic obstructive pulmonary disease, unspecified; M17.10 Unilateral primary osteoarthritis, unspecified knee; E66.01 Morbid (severe) obesity due to excess calories; K57.30 Diverticulosis of large intestine without perforation or abscess without bleeding; M94.0 Chondrocostal junction syndrome [Tietze]; Z88.1 Allergy status to other antibiotic agents; Z88.6 Allergy status to analgesic agent; Z87.01 Personal history of pneumonia (recurrent); Z90.49 Acquired absence of other specified parts of digestive tract; Z82.0 Family history of epilepsy and other diseases of the nervous system; Z83.3 Family history of diabetes mellitus; Z84.89 Family history of other specified conditions; Z82.3 Family history of stroke; Z82.49 Family history of ischemic heart disease and other diseases of the circulatory system; Z79.899 Other long term (current) drug therapy

== ENCOUNTER → 2019-07-26 | Outpatient (CLI) | payer MEDICARE ==
[~2019-07-26] MED LIST changes: +AMLODIPINE BESY10 MG PO; +APRESOLINE10 MG PO; +NORVASC5 MG PO; +TOPAMAX25 M3 PO; +VESICARE5 MG PO
[2019-08-01 20:16] LABS: METANEPHRINE, PLASMA 16 pg/mL (0-62); NORMETANEPHRINE, PLASMA 98 pg/mL (0-145)
== END | disposition home or self-care (01) ==
LOC: LAB 15:33
PROVIDERS: Internal Medicine Nephrology
DX: I10 Essential (primary) hypertension (principal)

== ENCOUNTER 2019-08-03 16:33 | Emergency (ER) | payer OTHER, MEDICARE ==
[~2019-08-03] VITALS: Ht 157.4 cm; Wt 81.2 kg
[2019-08-03 17:45] VITALS: BP 142/72
== END 2019-08-03 17:44 | disposition home or self-care (01) ==
LOC: ED 16:33
DX: S60.212A Contusion of left wrist, initial encounter (principal); Z90.49 Acquired absence of other specified parts of digestive tract; Z98.890 Other specified postprocedural states; Z79.899 Other long term (current) drug therapy; Z88.1 Allergy status to other antibiotic agents; Z88.6 Allergy status to analgesic agent; V49.88XA Car occupant (driver) (passenger) injured in other specified transport accidents, initial encounter; Y93.89 Activity, other specified; Y92.413 State road as the place of occurrence of the external cause; Y99.9 Unspecified external cause status

== ENCOUNTER → 2019-08-05 | Outpatient (CLI) | payer MEDICARE | END | disposition home or self-care (01) | LOC: US 09:13 | DX: I10 Essential (primary) hypertension (principal) ==

== ENCOUNTER 2020-03-16 13:24 | Emergency (ER) | payer MEDICARE ==
[~2020-03-16] VITALS: Ht 157.4 cm; Wt 128.4 kg
[2020-03-16 14:02] LABS: BASO # 0.1 10*3/uL (0.0-0.1); BASO % 0.7 % (0.0-1.0); EOS # 0.3 10*3/uL (0.0-0.4); EOS % 2.8 % (1.0-4.0); HEMATOCRIT 38.2 % (37.0-47.0); LYMPH # 1.6 10*3/uL (1.3-4.4); LYMPH % 18.3 % (27.0-41.0); MEAN CELL VOLUME 91.6 fl (81.0-99.0); MEAN CORPUSCULAR HGB CONC 31.7 g/dl (33.0-37.0); MEAN PLATELET VOLUME 9.6 fl (9.6-12.3); MONO # 0.6 10*3/uL (0.1-1.0); MONO % 6.3 % (3.0-9.0); NEUT # 6.3 10*3/uL (2.3-7.9); NEUT % 71.7 % (47.0-73.0); PLATELET COUNT AUTOMATED 293 10*3/uL (130-400); RED BLOOD COUNT 4.17 10*6/uL (4.10-5.10); RED CELL DISTRI WIDTH 15.3 % (0-14.5); WHITE BLOOD COUNT 8.9 10*3/uL (4.8-10.8)
[2020-03-16 14:17] LABS: ALBUMIN 3.3 gm/dl (3.1-4.5); ALKALINE PHOSPHATASE 92 U/L (45-117); BUN 29 mg/dl (7-24); CHLORIDE 110 mmol/L (98-107); CREATININE 1.15 mg/dL (0.55-1.02); SGOT/AST 19 IU/L (3-35); SGPT/ALT 27 U/L (12-78); SODIUM 142 mmol/L (136-145); TOTAL PROTEIN 7.5 gm/dL (6.4-8.2)
[2020-03-16 14:31] LABS: TROPONIN I < 0.015 ng/ml (<0.045)
[2020-03-16 15:04] VITALS: BP 131/60
[2020-03-16] MEDS ORDERED: MECLIZINE HCL25 M2 PO (15:52)
== END 2020-03-16 16:08 | disposition home or self-care (01) ==
LOC: ED 13:24
PROVIDERS: Emergency Medicine
DX: R42 Dizziness and giddiness (principal); Z88.8 Allergy status to other drugs, medicaments and biological substances; Z79.899 Other long term (current) drug therapy

== ENCOUNTER 2020-04-04 09:34 | Emergency (ER) | payer MEDICARE ==
[~2020-04-04] VITALS: Wt 129.7 kg
[~2020-04-04 09:34] MED LIST changes: +MECLIZINE HCL25 M2 PO
[2020-04-04 09:39] VITALS: BP 134/58
[2020-04-04 10:21] LABS: BASO % 0.6 % (0.0-1.0); EOS # 0.2 10*3/uL (0.0-0.4); EOS % 2.8 % (1.0-4.0); HEMATOCRIT 38.7 % (37.0-47.0); LYMPH # 1.4 10*3/uL (1.3-4.4); LYMPH % 20.3 % (27.0-41.0); MEAN CELL VOLUME 91.9 fl (81.0-99.0); MEAN CORPUSCULAR HGB 28.7 pg (27.0-31.0); MEAN CORPUSCULAR HGB CONC 31.3 g/dl (33.0-37.0); MEAN PLATELET VOLUME 9.1 fl (9.6-12.3); MONO # 0.5 10*3/uL (0.1-1.0); MONO % 6.9 % (3.0-9.0); NEUT # 4.9 10*3/uL (2.3-7.9); PLATELET COUNT AUTOMATED 292 10*3/uL (130-400); RED BLOOD COUNT 4.21 10*6/uL (4.10-5.10); RED CELL DISTRI WIDTH 14.7 % (0-14.5); WHITE BLOOD COUNT 7.1 10*3/uL (4.8-10.8)
[2020-04-04 10:37] LABS: BILIRUBIN NEGATIVE (NEGATIVE); BLOOD NEGATIVE (NEGATIVE); CLARITY SL CLOUDY (CLEAR); COLOR YELLOW (YELLOW); GLUCOSE NEGATIVE (NEGATIVE); KETONE NEGATIVE (NEGATIVE); LEUKO ESTERASE 2+ (NEGATIVE); NITRITE NEGATIVE (NEGATIVE); SPECIFIC GRAVITY 1.025 (1.005-1.030); UROBILINOGEN 0.2 E.U./dl (0.2-1.0)
[2020-04-04 10:37] LABS: ALBUMIN 3.4 gm/dl (3.1-4.5); ALKALINE PHOSPHATASE 71 U/L (45-117); BUN 21 mg/dl (7-24); CHLORIDE 108 mmol/L (98-107); CREATININE 0.83 mg/dL (0.55-1.02); POTASSIUM 4.1 mmol/L (3.5-5.1); SGOT/AST 15 IU/L (3-35); SGPT/ALT 20 U/L (12-78); SODIUM 140 mmol/L (136-145); TOTAL PROTEIN 7.4 gm/dL (6.4-8.2)
[2020-04-04 10:43] LABS: WBC 21-30 wbc/hpf (0-5)
[2020-04-04 10:44] LABS: BACTERIA 3+; YEAST 1+
[2020-04-04] MEDS ORDERED: NORCO 5-325 TA1 EACH PO (12:58)
[2020-04-04] MEDS ORDERED: SEPTDS PO (12:58)
== END 2020-04-04 13:09 | disposition home or self-care (01) ==
LOC: ED 09:34
PROVIDERS: Nurse Practitioner Family
DX: N39.0 Urinary tract infection, site not specified (principal); M54.5 Low back pain; I10 Essential (primary) hypertension; Z88.1 Allergy status to other antibiotic agents; Z88.6 Allergy status to analgesic agent; Z79.899 Other long term (current) drug therapy

== ENCOUNTER → 2020-09-18 | Outpatient (CLI) | payer MEDICARE ==
[~2020-09-18] MED LIST changes: +HYDRALAZINE HYD50 MG PO; +NORCO 5-325 TA1 EACH PO; +SEPTDS PO; -VITAMIN E200 UNI2 PO; +VITAMIN E400 UNIT PO
== END | disposition home or self-care (01) ==
LOC: COVID19 11:42
PROVIDERS: ATTEND Internal Medicine Nephrology
DX: Z20.828 Contact with and (suspected) exposure to other viral communicable diseases (principal)

== ENCOUNTER → 2020-10-30 | Outpatient (CLI) | payer MEDICARE | END | disposition home or self-care (01) | LOC: MAMMO 00:20 | PROVIDERS: ATTEND Internal Medicine Nephrology | DX: Z12.31 Encounter for screening mammogram for malignant neoplasm of breast (principal); N63.25 Unspecified lump in the left breast, overlapping quadrants ==

== ENCOUNTER → 2020-11-10 | Outpatient (CLI) | payer MEDICARE | END | disposition home or self-care (01) | LOC: CT 00:47 | PROVIDERS: ATTEND Internal Medicine Nephrology | DX: J32.0 Chronic maxillary sinusitis (principal); D16.9 Benign neoplasm of bone and articular cartilage, unspecified ==

== ENCOUNTER → 2020-12-04 | Outpatient (CLI) | payer MEDICARE ==
[2020-12-04 08:35] LABS: BASO # 0.1 10*3/uL (0.0-0.1); BASO % 0.5 % (0.0-1.0); EOS # 0.2 10*3/uL (0.0-0.4); EOS % 2.2 % (1.0-4.0); HEMATOCRIT 41.8 % (37.0-47.0); LYMPH # 1.6 10*3/uL (1.3-4.4); LYMPH % 17.1 % (27.0-41.0); MEAN CELL VOLUME 87.4 fl (81.0-99.0); MEAN CORPUSCULAR HGB 28.2 pg (27.0-31.0); MEAN CORPUSCULAR HGB CONC 32.3 g/dl (33.0-37.0); MEAN PLATELET VOLUME 9.4 fl (9.6-12.3); MONO # 0.6 10*3/uL (0.1-1.0); MONO % 6.6 % (3.0-9.0); NEUT # 6.8 10*3/uL (2.3-7.9); NEUT % 73.4 % (47.0-73.0); PLATELET COUNT AUTOMATED 356 10*3/uL (130-400); RED BLOOD COUNT 4.78 10*6/uL (4.10-5.10); WHITE BLOOD COUNT 9.2 10*3/uL (4.8-10.8)
[2020-12-04 08:38] LABS: BILIRUBIN Negative (Negative); BLOOD Negative (Negative); CLARITY Clear (Clear); COLOR Yellow (Yellow); GLUCOSE Negative (Negative); KETONE Trace (Negative); LEUKO ESTERASE 2+ (Negative); NITRITE Negative (Negative); PH 5.5 (4.5-8.0); SPECIFIC GRAVITY 1.025 (1.001-1.030)
[2020-12-04 08:45] LABS: ACT PARTIAL THROMBO TIME 29.1 SECONDS (20.0-32.1); INTERNATIONAL NORM RATIO 0.9 (2.0-3.5)
[2020-12-04 09:02] LABS: ALBUMIN 3.5 gm/dl (3.1-4.5); ALKALINE PHOSPHATASE 83 U/L (45-117); BUN 19 mg/dl (7-24); CHLORIDE 109 mmol/L (98-107); CREATININE 0.92 mg/dL (0.55-1.02); POTASSIUM 4.1 mmol/L (3.5-5.1); SGOT/AST 8 IU/L (3-35); SGPT/ALT 19 U/L (12-78); SODIUM 141 mmol/L (136-145); TOTAL PROTEIN 7.9 gm/dL (6.4-8.2)
[2020-12-04 09:59] LABS: BACTERIA 1+; EPITHELIAL CELLS 16-20
== END | disposition home or self-care (01) ==
LOC: LAB 00:10
PROVIDERS: ATTEND Orthopaedic Surgery
DX: Z01.818 Encounter for other preprocedural examination (principal); I44.4 Left anterior fascicular block; I51.7 Cardiomegaly; I10 Essential (primary) hypertension; M19.90 Unspecified osteoarthritis, unspecified site; Z79.1 Long term (current) use of non-steroidal anti-inflammatories (NSAID)

== ENCOUNTER 2021-03-05 10:06 | Inpatient (IN) | payer MEDICARE ==
[~2021-03-05] VITALS: Ht 157.4 cm; Wt 133.9 kg
[2021-03-05 10:34] VITALS: BP 148/73
[2021-03-05 10:41] LABS: BASO # 0.1 10*3/uL (0.0-0.1); BASO % 0.7 % (0.0-1.0); EOS # 0.2 10*3/uL (0.0-0.4); EOS % 1.7 % (1.0-4.0); LYMPH # 1.8 10*3/uL (1.3-4.4); MEAN CELL VOLUME 88.7 fl (81.0-99.0); MEAN CORPUSCULAR HGB 28.2 pg (27.0-31.0); MEAN CORPUSCULAR HGB CONC 31.8 g/dl (33.0-37.0); MEAN PLATELET VOLUME 9.5 fl (9.6-12.3); MONO # 0.7 10*3/uL (0.1-1.0); MONO % 6.6 % (3.0-9.0); NEUT # 7.7 10*3/uL (2.3-7.9); NEUT % 73.7 % (47.0-73.0); PLATELET COUNT AUTOMATED 352 10*3/uL (130-400); RED BLOOD COUNT 4.51 10*6/uL (4.10-5.10); WHITE BLOOD COUNT 10.4 10*3/uL (4.8-10.8)
[2021-03-05 10:57] LABS: ALBUMIN 3.2 gm/dl (3.1-4.5); ALKALINE PHOSPHATASE 87 U/L (45-117); BUN 18 mg/dl (7-24); CHLORIDE 108 mmol/L (98-107); CREATININE 0.89 mg/dL (0.55-1.02); POTASSIUM 4.3 mmol/L (3.5-5.1); SGOT/AST 20 IU/L (3-35); SODIUM 141 mmol/L (136-145); TOTAL PROTEIN 7.8 gm/dL (6.4-8.2)
[2021-03-05 10:59] LABS: ACT PARTIAL THROMBO TIME 22.9 SECONDS (20.0-32.1); INTERNATIONAL NORM RATIO 0.9 (2.0-3.5)
[2021-03-05 11:01] LABS: TROPONIN I < 0.015 ng/ml (<0.045)
[2021-03-05 11:02] LABS: SGPT/ALT 18 U/L (12-78)
[2021-03-05 12:05] VITALS: BP 134/64
[2021-03-05 12:20] VITALS: BP 143/69
[2021-03-05] MEDS ORDERED: CLARITIN10 MG PO (12:37)
[2021-03-05] MEDS ORDERED: ATENOLOL25 MG PO (12:37)
[2021-03-05 16:06] VITALS: BP 140/63
[2021-03-05 20:00] VITALS: BP 106/44
[2021-03-06] VITALS: BP 120/57
[2021-03-06 06:29] LABS: BUN 15 mg/dl (7-24); CHLORIDE 109 mmol/L (98-107); CHOLESTEROL 117 mg/dL (<200); CREATININE 0.66 mg/dL (0.55-1.02); POTASSIUM 3.9 mmol/L (3.5-5.1); SODIUM 142 mmol/L (136-145)
[2021-03-06 06:30] LABS: LDL CHOLESTEROL 64 mg/dL (9-159); TRIGLYCERIDES 86 mg/dl (<150)
[2021-03-06 10:33] VITALS: BP 130/69
[2021-03-06 12:00] VITALS: BP 139/82
[2021-03-06 15:00] VITALS: BP 144/57
== END 2021-03-06 16:38 | disposition home or self-care (01) | DRG 313 ==
LOC: ED 10:06 → EDHOLD 11:08 → 5E 11:36
PROVIDERS: Emergency Medicine; Student in an Organized Health Care Education/Training Program; ADMIT Internal Medicine; ATTEND Internal Medicine
PROC: 4A02XM4 Measurement of Cardiac Total Activity, External Approach (ICD-10-PCS; principal; 2021-03-06)
PROC: 3E073KZ Introduction of Other Diagnostic Substance into Coronary Artery, Percutaneous Approach (ICD-10-PCS; 2021-03-06)
DX: R07.89 Other chest pain (principal); Z68.43 Body mass index [BMI] 50.0-59.9, adult; I50.32 Chronic diastolic (congestive) heart failure; E87.8 Other disorders of electrolyte and fluid balance, not elsewhere classified; E66.01 Morbid (severe) obesity due to excess calories; I11.0 Hypertensive heart disease with heart failure; J30.2 Other seasonal allergic rhinitis; E55.9 Vitamin D deficiency, unspecified; R73.03 Prediabetes; J44.9 Chronic obstructive pulmonary disease, unspecified; K57.30 Diverticulosis of large intestine without perforation or abscess without bleeding; R51.9 Headache, unspecified; Z88.1 Allergy status to other antibiotic agents; Z88.6 Allergy status to analgesic agent; Z87.01 Personal history of pneumonia (recurrent); Z91.81 History of falling; Z87.440 Personal history of urinary (tract) infections; Z90.49 Acquired absence of other specified parts of digestive tract; Z82.0 Family history of epilepsy and other diseases of the nervous system; Z83.3 Family history of diabetes mellitus; Z82.49 Family history of ischemic heart disease and other diseases of the circulatory system; Z82.3 Family history of stroke; Z84.89 Family history of other specified conditions; Z79.899 Other long term (current) drug therapy

== ENCOUNTER 2021-04-24 11:30 | Inpatient (IN) | payer MEDICARE ==
[~2021-04-24] VITALS: Ht 157.4 cm; Wt 132.4 kg
[~2021-04-24 11:30] MED LIST changes: +ATENOLOL25 MG PO
[2021-04-24 11:40] VITALS: BP 122/89
[2021-04-24 13:00] LABS: BASO # 0.1 10*3/uL (0.0-0.1); BASO % 0.5 % (0.0-1.0); EOS # 0.2 10*3/uL (0.0-0.4); EOS % 2.2 % (1.0-4.0); LYMPH # 1.8 10*3/uL (1.3-4.4); LYMPH % 19.2 % (27.0-41.0); MEAN CELL VOLUME 87.5 fl (81.0-99.0); MEAN PLATELET VOLUME 9.5 fl (9.6-12.3); MONO # 0.7 10*3/uL (0.1-1.0); MONO % 7.1 % (3.0-9.0); NEUT # 6.5 10*3/uL (2.3-7.9); NEUT % 70.7 % (47.0-73.0); PLATELET COUNT AUTOMATED 322 10*3/uL (130-400); RED BLOOD COUNT 4.57 10*6/uL (4.10-5.10); RED CELL DISTRI WIDTH 14.7 % (0-14.5); WHITE BLOOD COUNT 9.2 10*3/uL (4.8-10.8)
[2021-04-24 13:05] LABS: BILIRUBIN Negative (Negative); BLOOD Negative (Negative); CLARITY Clear (Clear); COLOR Yellow (Yellow); GLUCOSE Negative (Negative); KETONE Negative (Negative); LEUKO ESTERASE 2+ (Negative); NITRITE Negative (Negative); PH 6.5 (4.5-8.0); SPECIFIC GRAVITY 1.015 (1.001-1.030)
[2021-04-24 13:26] LABS: BACTERIA 3+; EPITHELIAL CELLS 16-20; WBC 31-40 wbc/hpf (0-5)
[2021-04-24 13:27] LABS: BUN 19 mg/dl (7-24); CHLORIDE 107 mmol/L (98-107); LIPASE 86 U/L (73-393); POTASSIUM 4.1 mmol/L (3.5-5.1); SODIUM 139 mmol/L (136-145)
[2021-04-24 13:30] LABS: ALKALINE PHOSPHATASE 82 U/L (45-117); CREATININE 0.78 mg/dL (0.55-1.02); SGOT/AST 15 IU/L (3-35); SGPT/ALT 18 U/L (12-78); TOTAL PROTEIN 7.7 gm/dL (6.4-8.2)
[2021-04-24 15:45] VITALS: BP 131/73
[2021-04-24] MEDS ORDERED: HYDR25T PO (17:36)
[2021-04-24] MEDS ORDERED: COREG3.125 MG PO (17:36)
[2021-04-24 20:00] VITALS: BP 96/42
[2021-04-25] VITALS: BP 101/53
[2021-04-25 06:29] LABS: BASO # 0.1 10*3/uL (0.0-0.1); BASO % 0.6 % (0.0-1.0); EOS # 0.2 10*3/uL (0.0-0.4); EOS % 2.6 % (1.0-4.0); HEMATOCRIT 38.6 % (37.0-47.0); LYMPH # 1.3 10*3/uL (1.3-4.4); LYMPH % 16.9 % (27.0-41.0); MEAN CELL VOLUME 89.1 fl (81.0-99.0); MEAN CORPUSCULAR HGB 27.7 pg (27.0-31.0); MEAN CORPUSCULAR HGB CONC 31.1 g/dl (33.0-37.0); MEAN PLATELET VOLUME 9.4 fl (9.6-12.3); MONO # 0.6 10*3/uL (0.1-1.0); MONO % 7.5 % (3.0-9.0); NEUT # 5.5 10*3/uL (2.3-7.9); PLATELET COUNT AUTOMATED 289 10*3/uL (130-400); RED BLOOD COUNT 4.33 10*6/uL (4.10-5.10); RED CELL DISTRI WIDTH 14.6 % (0-14.5); WHITE BLOOD COUNT 7.7 10*3/uL (4.8-10.8)
[2021-04-25 06:48] LABS: ALKALINE PHOSPHATASE 67 U/L (45-117); BUN 17 mg/dl (7-24); CHLORIDE 106 mmol/L (98-107); CREATININE 0.74 mg/dL (0.55-1.02); POTASSIUM 4.4 mmol/L (3.5-5.1); SGOT/AST 8 IU/L (3-35); SGPT/ALT 16 U/L (12-78); SODIUM 140 mmol/L (136-145); TOTAL PROTEIN 6.9 gm/dL (6.4-8.2)
[2021-04-25 10:45] VITALS: BP 127/69
[2021-04-25 11:00] VITALS: BP 124/74
[2021-04-25 16:00] VITALS: BP 120/72
[2021-04-25 20:00] VITALS: BP 108/59
[2021-04-26] VITALS (9 sets, daily range): BP systolic 96–140; BP diastolic 36–68
[2021-04-26 09:41] LABS: BASO % 0.4 % (0.0-1.0); EOS # 0.1 10*3/uL (0.0-0.4); EOS % 1.9 % (1.0-4.0); LYMPH # 0.9 10*3/uL (1.3-4.4); LYMPH % 12.4 % (27.0-41.0); MEAN CELL VOLUME 88.9 fl (81.0-99.0); MEAN CORPUSCULAR HGB 27.8 pg (27.0-31.0); MEAN CORPUSCULAR HGB CONC 31.3 g/dl (33.0-37.0); MEAN PLATELET VOLUME 9.4 fl (9.6-12.3); MONO # 0.2 10*3/uL (0.1-1.0); MONO % 3.4 % (3.0-9.0); NEUT # 5.7 10*3/uL (2.3-7.9); NEUT % 81.5 % (47.0-73.0); PLATELET COUNT AUTOMATED 306 10*3/uL (130-400); RED CELL DISTRI WIDTH 14.7 % (0-14.5)
[2021-04-27] VITALS: BP 134/63
[2021-04-27 07:58] VITALS: BP 137/73
[2021-04-27 12:00] VITALS: BP 121/53
== END 2021-04-27 14:24 | disposition home or self-care (01) | DRG 418 ==
LOC: ED 11:30 → EDHOLD 15:26 → 5E 15:26 → EDHOLD 15:48 → 5E 16:44
PROVIDERS: Physician Assistant; Podiatrist Foot & Ankle Surgery; ADMIT Internal Medicine; ATTEND Internal Medicine
PROC: 0FT44ZZ Resection of Gallbladder, Percutaneous Endoscopic Approach (ICD-10-PCS; principal; 2021-04-26)
DX: K80.50 Calculus of bile duct without cholangitis or cholecystitis without obstruction (principal); N39.0 Urinary tract infection, site not specified; I50.32 Chronic diastolic (congestive) heart failure; E44.0 Moderate protein-calorie malnutrition; Z68.43 Body mass index [BMI] 50.0-59.9, adult; K82.8 Other specified diseases of gallbladder; R19.8 Other specified symptoms and signs involving the digestive system and abdomen; R91.8 Other nonspecific abnormal finding of lung field; K76.0 Fatty (change of) liver, not elsewhere classified; R73.03 Prediabetes; R79.89 Other specified abnormal findings of blood chemistry; I11.0 Hypertensive heart disease with heart failure; E55.9 Vitamin D deficiency, unspecified; Z88.6 Allergy status to analgesic agent; Z88.1 Allergy status to other antibiotic agents; Z88.8 Allergy status to other drugs, medicaments and biological substances; Z90.49 Acquired absence of other specified parts of digestive tract; Z83.3 Family history of diabetes mellitus

== ENCOUNTER 2021-04-29 12:58 | Inpatient (IN) | payer MEDICARE ==
[~2021-04-29] VITALS: Ht 157.5 cm; Wt 140.6 kg
[~2021-04-29 12:58] MED LIST changes: +COREG3.125 MG PO
[2021-04-29 13:11] VITALS: BP 145/73
[2021-04-29 14:06] LABS: BASO # 0.1 10*3/uL (0.0-0.1); BASO % 0.5 % (0.0-1.0); EOS # 0.2 10*3/uL (0.0-0.4); EOS % 2.4 % (1.0-4.0); HEMATOCRIT 39.2 % (37.0-47.0); LYMPH # 2.1 10*3/uL (1.3-4.4); LYMPH % 21.5 % (27.0-41.0); MEAN CELL VOLUME 86.7 fl (81.0-99.0); MEAN CORPUSCULAR HGB 27.7 pg (27.0-31.0); MEAN CORPUSCULAR HGB CONC 31.9 g/dl (33.0-37.0); MEAN PLATELET VOLUME 9.2 fl (9.6-12.3); MONO # 0.8 10*3/uL (0.1-1.0); MONO % 7.8 % (3.0-9.0); NEUT # 6.4 10*3/uL (2.3-7.9); NEUT % 67.3 % (47.0-73.0); PLATELET COUNT AUTOMATED 363 10*3/uL (130-400); RED BLOOD COUNT 4.52 10*6/uL (4.10-5.10); RED CELL DISTRI WIDTH 14.8 % (0-14.5); WHITE BLOOD COUNT 9.6 10*3/uL (4.8-10.8)
[2021-04-29 14:18] LABS: BILIRUBIN Negative (Negative); BLOOD Negative (Negative); CLARITY Clear (Clear); COLOR Yellow (Yellow); GLUCOSE Negative (Negative); KETONE Negative (Negative); LEUKO ESTERASE Trace (Negative); NITRITE Negative (Negative); PH 7.5 (4.5-8.0); SPECIFIC GRAVITY 1.015 (1.001-1.030); UROBILINOGEN 0.2 E.U./dl (0.0-1.0)
[2021-04-29 14:23] LABS: ALBUMIN 3.1 gm/dl (3.1-4.5); ALKALINE PHOSPHATASE 75 U/L (45-117); BUN 16 mg/dl (7-24); CHLORIDE 107 mmol/L (98-107); CREATININE 0.77 mg/dL (0.55-1.02); LIPASE 79 U/L (73-393); SGOT/AST 18 IU/L (3-35); SGPT/ALT 32 U/L (12-78); SODIUM 137 mmol/L (136-145); TOTAL PROTEIN 7.3 gm/dL (6.4-8.2)
[2021-04-29 14:24] LABS: BACTERIA 1+; RBC 0-2 rbc/hpf (0-2)
[2021-04-29 14:26] LABS: TROPONIN I < 0.015 ng/ml (<0.045)
[2021-04-29 15:22] VITALS: BP 122/68
[2021-04-29 17:48] VITALS: BP 126/51
[2021-04-29 18:19] VITALS: BP 131/77
[2021-04-29 20:00] VITALS: BP 105/54
[2021-04-30] VITALS (8 sets, daily range): BP systolic 95–137; BP diastolic 44–71
[2021-04-30 06:10] LABS: BASO # 0.1 10*3/uL (0.0-0.1); BASO % 0.6 % (0.0-1.0); EOS # 0.1 10*3/uL (0.0-0.4); EOS % 1.5 % (1.0-4.0); HEMATOCRIT 40.1 % (37.0-47.0); LYMPH # 1.2 10*3/uL (1.3-4.4); LYMPH % 14.3 % (27.0-41.0); MEAN CELL VOLUME 86.8 fl (81.0-99.0); MEAN CORPUSCULAR HGB 27.5 pg (27.0-31.0); MEAN CORPUSCULAR HGB CONC 31.7 g/dl (33.0-37.0); MEAN PLATELET VOLUME 9.4 fl (9.6-12.3); MONO # 0.5 10*3/uL (0.1-1.0); MONO % 6.3 % (3.0-9.0); NEUT # 6.3 10*3/uL (2.3-7.9); NEUT % 76.7 % (47.0-73.0); PLATELET COUNT AUTOMATED 372 10*3/uL (130-400); RED BLOOD COUNT 4.62 10*6/uL (4.10-5.10); RED CELL DISTRI WIDTH 14.9 % (0-14.5); WHITE BLOOD COUNT 8.2 10*3/uL (4.8-10.8)
[2021-04-30 06:23] LABS: ALBUMIN 3.3 gm/dl (3.1-4.5); ALKALINE PHOSPHATASE 112 U/L (45-117); BUN 14 mg/dl (7-24); CHLORIDE 107 mmol/L (98-107); CREATININE 0.75 mg/dL (0.55-1.02); SGOT/AST 596 IU/L (3-35); SGPT/ALT 587 U/L (12-78); SODIUM 137 mmol/L (136-145); TOTAL PROTEIN 7.5 gm/dL (6.4-8.2)
[2021-05-01] VITALS: BP 126/37
[2021-05-01 06:12] LABS: ALBUMIN 2.9 gm/dl (3.1-4.5)
[2021-05-01 06:16] LABS: TOTAL PROTEIN 6.7 gm/dL (6.4-8.2)
[2021-05-01 08:00] VITALS: BP 138/78
[2021-05-01 12:00] VITALS: BP 150/64
== END 2021-05-01 16:39 | disposition home or self-care (01) | DRG 378 ==
LOC: ED 12:58 → 5E 15:57 → EDHOLD 15:57 → 5E 17:46
PROVIDERS: Emergency Medicine; Internal Medicine Gastroenterology; ADMIT Internal Medicine; ATTEND Internal Medicine
PROC: 0DB68ZX Excision of Stomach, Via Natural or Artificial Opening Endoscopic, Diagnostic (ICD-10-PCS; principal; 2021-04-30)
DX: K29.71 Gastritis, unspecified, with bleeding (principal); I50.32 Chronic diastolic (congestive) heart failure; Z68.43 Body mass index [BMI] 50.0-59.9, adult; E66.01 Morbid (severe) obesity due to excess calories; R26.81 Unsteadiness on feet; K44.9 Diaphragmatic hernia without obstruction or gangrene; I11.0 Hypertensive heart disease with heart failure; M17.10 Unilateral primary osteoarthritis, unspecified knee; R73.03 Prediabetes; Z88.1 Allergy status to other antibiotic agents; Z88.8 Allergy status to other drugs, medicaments and biological substances; Z90.49 Acquired absence of other specified parts of digestive tract; Z83.3 Family history of diabetes mellitus; Z82.0 Family history of epilepsy and other diseases of the nervous system; Z79.899 Other long term (current) drug therapy

== ENCOUNTER → 2022-04-29 | Outpatient (CLI) | payer MEDICARE ==
[~2022-04-29] MED LIST changes: +ASPIRIN CHEWABL81 MG PO
== END | disposition home or self-care (01) ==
LOC: US 14:31
PROVIDERS: ATTEND Internal Medicine Nephrology
DX: M79.89 Other specified soft tissue disorders (principal)

== ENCOUNTER 2022-05-15 11:54 | Emergency (ER) | payer MEDICARE ==
[~2022-05-15] VITALS: Ht 157.4 cm; Wt 129.3 kg
[2022-05-15 13:01] VITALS: BP 138/70
[2022-05-15 13:02] LABS: BASO # 0.1 10*3/uL (0.0-0.1); BASO % 0.6 % (0.0-1.0); EOS # 0.2 10*3/uL (0.0-0.4); EOS % 2.5 % (1.0-4.0); HEMATOCRIT 39.5 % (37.0-47.0); LYMPH # 1.5 10*3/uL (1.3-4.4); LYMPH % 18.4 % (27.0-41.0); MEAN CELL VOLUME 90.2 fl (81.0-99.0); MEAN CORPUSCULAR HGB 28.8 pg (27.0-31.0); MEAN CORPUSCULAR HGB CONC 31.9 g/dl (33.0-37.0); MEAN PLATELET VOLUME 9.4 fl (9.6-12.3); MONO # 0.6 10*3/uL (0.1-1.0); MONO % 6.8 % (3.0-9.0); NEUT # 5.8 10*3/uL (2.3-7.9); NEUT % 71.5 % (47.0-73.0); PLATELET COUNT AUTOMATED 267 10*3/uL (130-400); RED BLOOD COUNT 4.38 10*6/uL (4.10-5.10); RED CELL DISTRI WIDTH 14.9 % (0-14.5); WHITE BLOOD COUNT 8.1 10*3/uL (4.8-10.8)
[2022-05-15 13:23] LABS: BUN 18 mg/dl (7-24); CHLORIDE 110 mmol/L (98-107); LIPASE 131 U/L (73-393); POTASSIUM 4.4 mmol/L (3.5-5.1); SGOT/AST 21 IU/L (3-35); SGPT/ALT 25 U/L (12-78); SODIUM 143 mmol/L (136-145)
[2022-05-15 13:26] LABS: ALKALINE PHOSPHATASE 83 U/L (45-117); CREATININE 0.79 mg/dL (0.55-1.02); TOTAL PROTEIN 6.9 gm/dL (6.4-8.2)
[2022-05-15 14:37] LABS: BILIRUBIN Negative (Negative); BLOOD Negative (Negative); CLARITY Clear (Clear); COLOR Yellow (Yellow); GLUCOSE Negative (Negative); KETONE Negative (Negative); LEUKO ESTERASE 2+ (Negative); NITRITE Negative (Negative); PH 5.5 (4.5-8.0); SPECIFIC GRAVITY 1.015 (1.001-1.030); UROBILINOGEN 0.2 E.U./dl (0.0-1.0)
[2022-05-15 14:49] LABS: BACTERIA 2+
== END 2022-05-15 16:40 | disposition home or self-care (01) ==
LOC: ED 11:54
PROVIDERS: Physician Assistant
DX: R11.2 Nausea with vomiting, unspecified (principal); R19.7 Diarrhea, unspecified; Z90.49 Acquired absence of other specified parts of digestive tract; Z98.890 Other specified postprocedural states; Z79.82 Long term (current) use of aspirin; Z79.899 Other long term (current) drug therapy; Z88.1 Allergy status to other antibiotic agents; Z88.6 Allergy status to analgesic agent

== ENCOUNTER → 2022-06-18 | Outpatient (CLI) | payer MEDICARE ==
[2022-06-18 16:17] LABS: CREATININE 1.26 mg/dL (0.55-1.02); POTASSIUM 4.9 mmol/L (3.5-5.1)
== END | disposition home or self-care (01) ==
LOC: LAB 15:26
PROVIDERS: ATTEND Internal Medicine
DX: U07.1 COVID-19 (principal)

== ENCOUNTER 2022-08-09 16:11 | Emergency (ER) | payer MEDICARE ==
[~2022-08-09] VITALS: Ht 157.4 cm; Wt 127.0 kg
[~2022-08-09 16:11] MED LIST changes: +ANTIVERT25 M1 PO; +VITAMIN E180 M1 PO
== END 2022-08-09 16:40 ==
LOC: ED 16:11
DX: Z53.21 Procedure and treatment not carried out due to patient leaving prior to being seen by health care provider (principal)

== ENCOUNTER → 2022-09-02 | Outpatient (CLI) | payer MEDICARE ==
[2022-09-02 16:49] LABS: ALKALINE PHOSPHATASE 101 U/L (45-117); BUN 25 mg/dl (7-24); CHLORIDE 108 mmol/L (98-107); CREATININE 0.86 mg/dL (0.55-1.02); POTASSIUM 4.1 mmol/L (3.5-5.1); SGOT/AST 13 IU/L (3-35); SGPT/ALT 24 U/L (12-78); SODIUM 140 mmol/L (136-145)
== END | disposition home or self-care (01) ==
LOC: LAB 15:35
PROVIDERS: ATTEND Orthopaedic Surgery
DX: R53.83 Other fatigue (principal); M25.569 Pain in unspecified knee

== ENCOUNTER 2022-11-04 10:54 | Emergency (ER) | payer MEDICARE ==
[~2022-11-04] VITALS: Ht 157.4 cm; Wt 87.1 kg
[2022-11-04 11:00] VITALS: BP 154/74
== END 2022-11-04 12:45 | disposition home or self-care (01) ==
LOC: ED 10:54
DX: S69.92XA Unspecified injury of left wrist, hand and finger(s), initial encounter (principal); Z88.1 Allergy status to other antibiotic agents; Z88.8 Allergy status to other drugs, medicaments and biological substances; I10 Essential (primary) hypertension; Z90.49 Acquired absence of other specified parts of digestive tract; Z98.890 Other specified postprocedural states; W20.8XXA Other cause of strike by thrown, projected or falling object, initial encounter; Y93.89 Activity, other specified; Y92.89 Other specified places as the place of occurrence of the external cause; Y99.8 Other external cause status

== ENCOUNTER → 2023-03-13 | Outpatient (CLI) | payer MEDICARE ==
[2023-03-13 16:43] LABS: BASO # 0.1 10*3/uL (0.0-0.1); BASO % 0.6 % (0.0-1.0); EOS # 0.2 10*3/uL (0.0-0.4); EOS % 2.4 % (1.0-4.0); HEMATOCRIT 42.7 % (37.0-47.0); LYMPH # 1.8 10*3/uL (1.3-4.4); LYMPH % 20.6 % (27.0-41.0); MEAN CELL VOLUME 90.1 fl (81.0-99.0); MEAN CORPUSCULAR HGB 28.5 pg (27.0-31.0); MEAN CORPUSCULAR HGB CONC 31.6 g/dl (33.0-37.0); MEAN PLATELET VOLUME 9.2 fl (9.6-12.3); MONO # 0.6 10*3/uL (0.1-1.0); MONO % 6.9 % (3.0-9.0); NEUT # 5.9 10*3/uL (2.3-7.9); NEUT % 69.1 % (47.0-73.0); PLATELET COUNT AUTOMATED 311 10*3/uL (130-400); RED BLOOD COUNT 4.74 10*6/uL (4.10-5.10); RED CELL DISTRI WIDTH 14.6 % (0-14.5); WHITE BLOOD COUNT 8.5 10*3/uL (4.8-10.8)
[2023-03-13 17:11] LABS: ALKALINE PHOSPHATASE 89 U/L (46-116); BUN 14 mg/dl (9-23); CHLORIDE 106 mmol/L (98-107); FREE T4 1.04 ng/dl (0.89-1.76); POTASSIUM 4.4 mmol/L (3.4-5.1); SGPT/ALT 16 U/L (10-49); THYROID STIM HORMONE (HS) 1.032 uIU/ml (0.550-4.780); TOTAL PROTEIN 7.4 gm/dL (6.0-8.0)
== END | disposition home or self-care (01) ==
LOC: LAB 16:17
PROVIDERS: ATTEND Internal Medicine Nephrology
DX: I99.8 Other disorder of circulatory system (principal); R42 Dizziness and giddiness; Z79.899 Other long term (current) drug therapy

== ENCOUNTER → 2023-04-02 | Outpatient (CLI) | payer MEDICARE | END | disposition home or self-care (01) | LOC: MAMMO 00:45 | PROVIDERS: ATTEND Internal Medicine Nephrology | DX: Z12.31 Encounter for screening mammogram for malignant neoplasm of breast (principal); N63.20 Unspecified lump in the left breast, unspecified quadrant ==

== ENCOUNTER 2023-06-07 11:42 | Emergency (ER) | payer MEDICARE ==
[~2023-06-07] VITALS: Ht 157.4 cm; Wt 129.3 kg
[~2023-06-07 11:42] MED LIST changes: +APRESOLINE25 MG PO; +COREG6.25 MG PO; +HCTZ PO
[2023-06-07 11:58] VITALS: BP 150/74
[2023-06-07 12:30] LABS: BASO # 0.1 10*3/uL (0.0-0.1); BASO % 0.8 % (0.0-1.0); EOS # 0.2 10*3/uL (0.0-0.4); EOS % 2.7 % (1.0-4.0); HEMATOCRIT 41.1 % (37.0-47.0); LYMPH # 1.5 10*3/uL (1.3-4.4); LYMPH % 20.2 % (27.0-41.0); MEAN CELL VOLUME 89.5 fl (81.0-99.0); MEAN CORPUSCULAR HGB 29.2 pg (27.0-31.0); MEAN CORPUSCULAR HGB CONC 32.6 g/dl (33.0-37.0); MEAN PLATELET VOLUME 9.5 fl (9.6-12.3); MONO # 0.6 10*3/uL (0.1-1.0); MONO % 7.5 % (3.0-9.0); NEUT # 5.1 10*3/uL (2.3-7.9); NEUT % 68.5 % (47.0-73.0); PLATELET COUNT AUTOMATED 265 10*3/uL (130-400); RED BLOOD COUNT 4.59 10*6/uL (4.10-5.10); RED CELL DISTRI WIDTH 14.8 % (0-14.5); WHITE BLOOD COUNT 7.4 10*3/uL (4.8-10.8)
[2023-06-07 12:53] LABS: ACT PARTIAL THROMBO TIME 30.7 SECONDS (20.0-32.1); INTERNATIONAL NORM RATIO 0.9 (2.0-3.5)
[2023-06-07 13:05] LABS: ALKALINE PHOSPHATASE 83 U/L (46-116); BUN 15 mg/dl (9-23); CHLORIDE 108 mmol/L (98-107); LIPASE 33 U/L (12-53); SGPT/ALT 15 U/L (10-49); TOTAL PROTEIN 7.2 gm/dL (6.0-8.0)
[2023-06-07 14:10] LABS: BILIRUBIN Negative (Negative); BLOOD Negative (Negative); CLARITY Clear (Clear); COLOR Yellow (Yellow); GLUCOSE Negative (Negative); KETONE Negative (Negative); LEUKO ESTERASE Negative (Negative); NITRITE Negative (Negative); SPECIFIC GRAVITY 1.015 (1.001-1.030)
[2023-06-07 14:22] LABS: BACTERIA 1+; EPITHELIAL CELLS 0-2
[2023-06-07 14:23] LABS: RBC 16-20 rbc/hpf (0-2)
[2023-06-07] MEDS ORDERED: MACROBID100 M1 PO (15:17)
== END 2023-06-07 15:31 | disposition home or self-care (01) ==
LOC: ED 11:42
PROVIDERS: Internal Medicine
DX: S83.91XA Sprain of unspecified site of right knee, initial encounter (principal); N39.0 Urinary tract infection, site not specified; I10 Essential (primary) hypertension; J45.909 Unspecified asthma, uncomplicated; Z88.1 Allergy status to other antibiotic agents; Z91.018 Allergy to other foods; Z88.6 Allergy status to analgesic agent; Z88.8 Allergy status to other drugs, medicaments and biological substances; Z90.49 Acquired absence of other specified parts of digestive tract; Z98.890 Other specified postprocedural states; Z95.5 Presence of coronary angioplasty implant and graft; X58.XXXA Exposure to other specified factors, initial encounter; Y93.89 Activity, other specified; Y92.89 Other specified places as the place of occurrence of the external cause; Y99.8 Other external cause status

== ENCOUNTER 2023-06-09 11:06 | Inpatient (IN) | payer MEDICARE ==
[~2023-06-09] VITALS: Ht 157.5 cm; Wt 136.1 kg
[~2023-06-09 11:06] MED LIST changes: +MACROBID100 M1 PO
[2023-06-09 11:15] VITALS: BP 150/76
[2023-06-09 11:45] LABS: BASO % 0.5 % (0.0-1.0); EOS # 0.2 10*3/uL (0.0-0.4); EOS % 2.7 % (1.0-4.0); HEMATOCRIT 40.4 % (37.0-47.0); LYMPH # 1.5 10*3/uL (1.3-4.4); LYMPH % 17.9 % (27.0-41.0); MEAN CELL VOLUME 88.6 fl (81.0-99.0); MEAN CORPUSCULAR HGB 29.2 pg (27.0-31.0); MEAN CORPUSCULAR HGB CONC 32.9 g/dl (33.0-37.0); MEAN PLATELET VOLUME 9.2 fl (9.6-12.3); MONO # 0.6 10*3/uL (0.1-1.0); MONO % 7.8 % (3.0-9.0); NEUT # 5.8 10*3/uL (2.3-7.9); NEUT % 70.7 % (47.0-73.0); PLATELET COUNT AUTOMATED 275 10*3/uL (130-400); RED BLOOD COUNT 4.56 10*6/uL (4.10-5.10); RED CELL DISTRI WIDTH 14.9 % (0-14.5); WHITE BLOOD COUNT 8.2 10*3/uL (4.8-10.8)
[2023-06-09 12:22] LABS: ALKALINE PHOSPHATASE 79 U/L (46-116); BUN 13 mg/dl (9-23); CHLORIDE 111 mmol/L (98-107); POTASSIUM 3.9 mmol/L (3.4-5.1); SGPT/ALT 15 U/L (10-49); TOTAL PROTEIN 6.8 gm/dL (6.0-8.0)
[2023-06-09 12:55] LABS: BILIRUBIN Negative (Negative); BLOOD Negative (Negative); CLARITY Clear (Clear); COLOR Yellow (Yellow); GLUCOSE Negative (Negative); KETONE Negative (Negative); LEUKO ESTERASE Negative (Negative); NITRITE Negative (Negative); PH 6.5 (4.5-8.0); SPECIFIC GRAVITY 1.015 (1.001-1.030)
[2023-06-09 13:15] LABS: BACTERIA 1+; RBC 0-2 rbc/hpf (0-2)
[2023-06-09 13:16] LABS: COARSE GRANULAR CAST 0-2
[2023-06-09 14:22] VITALS: BP 142/78
[2023-06-09 16:00] VITALS: BP 118/40
[2023-06-09 17:15] VITALS: BP 154/78
[2023-06-09] MEDS ORDERED: CARVEDILOL3.125 MG PO (17:40)
[2023-06-09] MEDS ORDERED: HYDROCHLOROTHIA25 M1 PO (17:41)
[2023-06-09 20:00] VITALS: BP 136/85
[2023-06-10] VITALS: BP 106/55
[2023-06-10 06:08] LABS: BUN 12 mg/dl (9-23); CHLORIDE 105 mmol/L (98-107); POTASSIUM 3.8 mmol/L (3.4-5.1)
[2023-06-10 06:26] LABS: BASO # 0.1 10*3/uL (0.0-0.1); BASO % 0.7 % (0.0-1.0); EOS # 0.2 10*3/uL (0.0-0.4); EOS % 2.5 % (1.0-4.0); HEMATOCRIT 39.8 % (37.0-47.0); LYMPH # 1.4 10*3/uL (1.3-4.4); LYMPH % 19.6 % (27.0-41.0); MEAN CELL VOLUME 88.4 fl (81.0-99.0); MEAN CORPUSCULAR HGB 29.1 pg (27.0-31.0); MEAN CORPUSCULAR HGB CONC 32.9 g/dl (33.0-37.0); MEAN PLATELET VOLUME 9.7 fl (9.6-12.3); MONO # 0.5 10*3/uL (0.1-1.0); MONO % 7.5 % (3.0-9.0); NEUT % 69.3 % (47.0-73.0); PLATELET COUNT AUTOMATED 278 10*3/uL (130-400); RED CELL DISTRI WIDTH 14.8 % (0-14.5); WHITE BLOOD COUNT 7.2 10*3/uL (4.8-10.8)
[2023-06-10 08:00] VITALS: BP 128/72
[2023-06-10 12:00] VITALS: BP 142/80
[2023-06-10 15:58] VITALS: BP 95/51
[2023-06-10 20:00] VITALS: BP 137/64
[2023-06-11] VITALS: BP 103/40
[2023-06-11 08:00] VITALS: BP 103/51
[2023-06-11 12:00] VITALS: BP 150/58
[2023-06-11] MEDS ORDERED: CEFUROXIME AXE500 MG PO (15:15)
[2023-06-11] MEDS ORDERED: XIFAXAN550 MG PO (15:21)
== END 2023-06-11 15:53 | disposition home or self-care (01) | DRG 158 ==
LOC: ED 11:06 → EDHOLD 14:30 → 4E 14:30 → EDHOLD 14:31 → 4E 15:00
PROVIDERS: Nurse Practitioner Family; ADMIT Internal Medicine; ATTEND Internal Medicine
DX: K12.2 Cellulitis and abscess of mouth (principal); Z68.43 Body mass index [BMI] 50.0-59.9, adult; I10 Essential (primary) hypertension; G44.89 Other headache syndrome; R06.09 Other forms of dyspnea; I35.9 Nonrheumatic aortic valve disorder, unspecified; K76.0 Fatty (change of) liver, not elsewhere classified; E66.01 Morbid (severe) obesity due to excess calories; R63.0 Anorexia; Z88.8 Allergy status to other drugs, medicaments and biological substances; Z88.6 Allergy status to analgesic agent; Z88.1 Allergy status to other antibiotic agents; Z91.02 Food additives allergy status; Z90.49 Acquired absence of other specified parts of digestive tract; Z83.3 Family history of diabetes mellitus; K58.0 Irritable bowel syndrome with diarrhea

== ENCOUNTER → 2023-10-15 | Outpatient (CLI) | payer MEDICARE ==
[~2023-10-15] MED LIST changes: +CARVEDILOL3.125 MG PO; +CEFUROXIME AXE500 MG PO; +HYDROCHLOROTHIA25 M1 PO; +MELOXICAM15 MG PO; +VITAMIN D350 MCG PO; +XIFAXAN550 MG PO
== END | disposition home or self-care (01) ==
LOC: LAB 15:51
PROVIDERS: ATTEND Internal Medicine
DX: B34.9 Viral infection, unspecified (principal)

== ENCOUNTER → 2024-02-02 | Outpatient (CLI) | payer MEDICARE | END | disposition home or self-care (01) | LOC: CARD 02:05 | PROVIDERS: ATTEND Internal Medicine Nephrology | DX: I49.3 Ventricular premature depolarization (principal); I49.1 Atrial premature depolarization ==

== ENCOUNTER 2024-02-19 18:01 | Emergency (ER) | payer MEDICARE ==
[~2024-02-19] VITALS: Ht 157.4 cm; Wt 131.5 kg
[2024-02-19 18:11] VITALS: BP 174/79
[2024-02-19] MEDS ORDERED: IOHEXOL 300 MG/ML 100 ML VIAL IV ONE (19:45)
[2024-02-19 19:59] LABS: BASO # 0.1 10*3/uL (0.0-0.1); BASO % 0.5 % (0.0-1.0); EOS # 0.2 10*3/uL (0.0-0.4); EOS % 1.4 % (1.0-4.0); HEMATOCRIT 42.9 % (37.0-47.0); LYMPH # 2.1 10*3/uL (1.3-4.4); LYMPH % 20.5 % (27.0-41.0); MEAN CELL VOLUME 87.9 fl (81.0-99.0); MEAN CORPUSCULAR HGB 28.5 pg (27.0-31.0); MEAN CORPUSCULAR HGB CONC 32.4 g/dl (33.0-37.0); MEAN PLATELET VOLUME 9.4 fl (9.6-12.3); MONO # 0.7 10*3/uL (0.1-1.0); MONO % 6.7 % (3.0-9.0); NEUT # 7.3 10*3/uL (2.3-7.9); NEUT % 70.6 % (47.0-73.0); PLATELET COUNT AUTOMATED 315 10*3/uL (130-400); RED BLOOD COUNT 4.88 10*6/uL (4.10-5.10); RED CELL DISTRI WIDTH 14.9 % (0-14.5); WHITE BLOOD COUNT 10.4 10*3/uL (4.8-10.8)
[2024-02-19 20:20] LABS: ALKALINE PHOSPHATASE 99 U/L (46-116); BUN 27 mg/dl (9-23); CHLORIDE 103 mmol/L (98-107); LIPASE 45 U/L (12-53); POTASSIUM 3.5 mmol/L (3.4-5.1); SGPT/ALT 29 U/L (5-49); TOTAL PROTEIN 7.8 gm/dL (6.0-8.0)
[2024-02-19] MEDS ORDERED: Pantoprazole Sodium 40 MG VIAL IV ONE (22:55)
== END 2024-02-20 02:53 | disposition home or self-care (01) ==
LOC: ED 18:01
PROVIDERS: Emergency Medicine
DX: K29.70 Gastritis, unspecified, without bleeding (principal); R11.10 Vomiting, unspecified; K21.9 Gastro-esophageal reflux disease without esophagitis; R73.9 Hyperglycemia, unspecified; I10 Essential (primary) hypertension; J45.909 Unspecified asthma, uncomplicated; Z88.1 Allergy status to other antibiotic agents; Z88.6 Allergy status to analgesic agent; Z91.018 Allergy to other foods; Z98.890 Other specified postprocedural states; Z90.49 Acquired absence of other specified parts of digestive tract; Z95.5 Presence of coronary angioplasty implant and graft; Z98.51 Tubal ligation status

== ENCOUNTER → 2024-07-26 | Outpatient (CLI) | payer MEDICARE | END | disposition home or self-care (01) | LOC: MAMMO 01:51 | PROVIDERS: ATTEND Internal Medicine Nephrology | DX: Z12.31 Encounter for screening mammogram for malignant neoplasm of breast (principal) ==

== ENCOUNTER 2024-10-27 11:24 | Emergency (ER) | payer MEDICARE ==
[~2024-10-27] VITALS: Ht 157.4 cm; Wt 123.0 kg
[2024-10-27 11:37] VITALS: BP 158/81
[2024-10-27 12:10] LABS: BASO # 0.1 10*3/uL (0.0-0.1); BASO % 0.8 % (0.0-1.0); EOS # 0.1 10*3/uL (0.0-0.4); EOS % 1.8 % (1.0-4.0); HEMATOCRIT 45.2 % (37.0-47.0); MEAN CELL VOLUME 89.7 fl (81.0-99.0); MEAN CORPUSCULAR HGB 29.4 pg (27.0-31.0); MEAN CORPUSCULAR HGB CONC 32.7 g/dl (33.0-37.0); MEAN PLATELET VOLUME 9.4 fl (9.6-12.3); MONO # 0.6 10*3/uL (0.1-1.0); MONO % 7.5 % (3.0-9.0); NEUT # 5.5 10*3/uL (2.3-7.9); NEUT % 69.6 % (47.0-73.0); PLATELET COUNT AUTOMATED 308 10*3/uL (130-400); RED BLOOD COUNT 5.04 10*6/uL (4.10-5.10); RED CELL DISTRI WIDTH 14.2 % (0-14.5)
[2024-10-27 12:31] LABS: ALKALINE PHOSPHATASE 96 U/L (46-116); BUN 13 mg/dl (9-23); CHLORIDE 104 mmol/L (98-107); LIPASE 33 U/L (12-53); POTASSIUM 3.7 mmol/L (3.4-5.1); SGPT/ALT 14 U/L (5-49); TOTAL PROTEIN 7.9 gm/dL (6.0-8.0)
[2024-10-27 12:43] LABS: BILIRUBIN Negative (Negative); BLOOD Negative (Negative); CLARITY Clear (Clear); COLOR Yellow (Yellow); GLUCOSE Negative (Negative); KETONE Negative (Negative); LEUKO ESTERASE Negative (Negative); NITRITE Negative (Negative); PH 5.5 (4.5-8.0); SPECIFIC GRAVITY 1.015 (1.001-1.030); UROBILINOGEN 0.2 E.U./dl (0.0-1.0)
[2024-10-27 12:52] LABS: RBC 0-2 rbc/hpf (0-2); WBC 0-2 wbc/hpf (0-5)
== END 2024-10-27 13:23 | disposition home or self-care (01) ==
LOC: ED 11:24
PROVIDERS: Physician Assistant Medical
DX: R33.9 Retention of urine, unspecified (principal); I10 Essential (primary) hypertension; J45.909 Unspecified asthma, uncomplicated; Z88.6 Allergy status to analgesic agent; Z88.1 Allergy status to other antibiotic agents; Z95.5 Presence of coronary angioplasty implant and graft; Z91.018 Allergy to other foods; Z90.49 Acquired absence of other specified parts of digestive tract; Z98.890 Other specified postprocedural states

== ENCOUNTER → 2025-02-09 | Outpatient (CLI) | payer MEDICARE ==
[~2025-02-09] MED LIST changes: +VITAMIN E PO
== END | disposition home or self-care (01) ==
LOC: RAD 15:25
PROVIDERS: ATTEND Internal Medicine Nephrology
DX: M50.11 Cervical disc disorder with radiculopathy, high cervical region (principal); M48.02 Spinal stenosis, cervical region; M79.18 Myalgia, other site; M50.121 Cervical disc disorder at C4-C5 level with radiculopathy; M50.122 Cervical disc disorder at C5-C6 level with radiculopathy; M50.123 Cervical disc disorder at C6-C7 level with radiculopathy